=== PATIENT | female | born 1950 | race Hispanic/Latino ===

== ENCOUNTER → 2020-12-08 | Day surgery (SDC) | payer OTHER, BC ==
[~2020-12-08] MED LIST: LIDOCAINE 1% MPF 5 ML VIAL ONE; Ringers Lactate 1,000 ML IV ONE; propofoL 200 MG/20 ML VIAL IV ONE
--- NOTE | 2020-12-08 08:53 | ENDO RPT ---
[address], [address] COLONOSCOPY PROCEDURE REPORT EXAM DATE: 12/08/2020 PATIENT NAME: Linda Gleason MR #: [id number] BIRTHDATE: 1950 ATTENDING: Mason Almeida MD STATUS: outpatient DIGITAL DIRECTOR: Demetria Mauricio RN and Diana BAUTISTA INDICATIONS: The patient is a 70 yr old Female here for a colonoscopy due to colon cancer screening PROCEDURE PERFORMED: Colonoscopy with hot biopsy polypectomy MEDICATIONS: Per Anesthesia. ESTIMATED BLOOD LOSS: None CONSENT: The patient understands the risks and benefits of the procedure and understands that these risks include, but are not limited to: sedation, allergic reaction, infection, perforation and/or bleeding. Alternative means of evaluation and treatment include, among others: physical exam, x-rays, and/or surgical intervention. The patient elects to proceed with this endoscopic procedure. DESCRIPTION OF PROCEDURE: During intra-op preparation period all mechanical medical equipment was checked for proper function. Hand hygiene and appropriate measures for infection prevention was taken. Procedure, possible complications, alternatives including, but not limited to possibility of bleeding, perforation, tear, infection, sepsis, need for surgery, need for blood transfusion, were explained to the patient. After the risks, benefits and alternatives of the procedure were thoroughly explained, Informed consent was verified, confirmed and timeout was successfully executed by the treatment team. The patient was placed in the left lateral position. A digital rectal exam was performed and revealed external hemorrhoids. After appropriate level of anesthesia, the scope was passed. The [id number] ([id number]) endoscope was introduced through the anus and advanced to the cecum, which was identified by transillumination from the light source, the appendix, and the ileocecal valve. The quality of the prep was fair. The instrument was then slowly withdrawn as the colon was fully examined. Scope withdrawal time was . COLON FINDINGS: Diverticula was found throughout the entire examined colon. The opening was medium sized. A sessile polyp was found in the ascending colon approximately 90-95 cm from anal verge < 0.3cm . Retroflexed views revealed no abnormalities. The scope was then completely withdrawn from the patient and the procedure terminated. ADVERSE EVENTS: There were no complications. IMPRESSIONS: 1. Diverticula throughout the entire examined colon 2. Sessile polyp was found in the ascending colon; polypectomy was performed in a piecemeal fashion using hot forceps 3. External hemorrhoids 4. Internal hemorrhoids RECOMMENDATIONS: 1. await biopsy results 2. follow-up: office 1 week(s) 3. hemorrhoidal hygiene 4. no seeds in diet RECALL: for Colonoscopy, pending biopsy results. Mason Almeida MD eSigned: Mason Almeida MD 12/08/2020 8:53 AM cc: Mason Almeida M.D. CPT CODES: ICD9 CODES: PATIENT NAME: Linda Gleason MR#: [id number]
[2020-12-08 09:03] VITALS: BP 98/60; TEMP 97.5; O2SAT 100
== END ==
LOC: OR 07:38
PROVIDERS: ATTEND Surgery
PROC: 0DBK8ZX Excision of Ascending Colon, Via Natural or Artificial Opening Endoscopic, Diagnostic (ICD-10-PCS; principal; 2020-12-08 08:30)
DX: Z12.11 Encounter for screening for malignant neoplasm of colon (principal); I10 Essential (primary) hypertension; I48.91 Unspecified atrial fibrillation; I51.9 Heart disease, unspecified; F32.9 Major depressive disorder, single episode, unspecified; E78.00 Pure hypercholesterolemia, unspecified; D12.2 Benign neoplasm of ascending colon; K64.4 Residual hemorrhoidal skin tags; K64.8 Other hemorrhoids
CPT/HCPCS: 88305; 45384; J2704; J7120

== ENCOUNTER 2022-01-06 00:45 | Emergency (ER) | payer OTHER, BC ==
--- OUTSIDE RECORDS SUMMARY | 2022-01-06 00:51 | XMS REPORT | Continuity of Care Document ---
:1950 Author Organization [facility] t Address [address] [place] [address] Care Team Providers Name Role Phone GOMEZ LAURA Primary Care Physician Unavailable Rupali Nolan Attending Clinician Unavailable Wandy Kemp MD, Guilherme Attending Clinician POLO SABA Attending Clinician Unavailable WIN COLBERT Attending Clinician Unavailable IFEANYI BUTLER Attending Clinician Unavailable AMARILIS CASTLE Attending Clinician Unavailable NICOLE GALLEGOS Attending Clinician Unavailable LA NENA BRANCH Attending Clinician Unavailable ELENA COBURN Admitting Clinician Unavailable POLO SABA Admitting Clinician Unavailable LA NENA BRANCH Admitting Clinician Unavailable Payers Payer Name Policy Type Policy Number Effective Date Expiration Date [facility] MEDICARE A B [id number] 2013 00:00:00 [place] [id number] 2015 OS 00:00:00 Problems Condition Condition Condition Status Onset Resolution Last Treating Co mments Source Name Details Category Date Date Treatment Clinician Date Deep vein 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 [facility] thrombosis thrombosis 1-20 Co llege (DVT) of (DVT) of 00:00: of non-extrem non-extrem 00 Me dicin ity vein ity vein e PFO PFO Disease Active 2017-05 [facility] (patent (patent 06-04 [place] foramen foramen 00:00: of ovale) ovale) 00 Medicin e Allergies, Adverse Reactions, Alerts Allergy Allergy Status Severity Reaction(s) Onset Inactive Treating Comm ents Source Name Type Date Date Clinician SHELLFIS Allergy [facility] PRODUCTS Shellfis Propensi Active Swelling [facility] or h-Derive ty to 08-24 [place] d adverse 00:00: of Products reaction 00 Medici n s to e drug PENICILL Allergy Active High Swelling [facility] Penicill Propensi Active Rash [facility] ins ty to 10-15 [place] adverse 00:00: of reaction 00 Medicin s to e drug PCN Adverse Active Info Not Common Reaction [facility] Social History Social Habit Start Date Stop Date Quantity Comments Source History [facility] ge Alcohol Frequency of Medi cine History [facility] ge Alcohol Std Drinks of Med icine History [facility] ge Alcohol Binge of Medicine Cigarette 2021-10-20 2021-10-20 [facility] pack-years 00:00:00 00:00:00 of Medicine Tobacco use and 2021-10-20 2021-10-20 Smokeless tobacco [facility] exposure 00:00:00 00:00:00 non-user of Medicine Alcohol intake 2021-10-20 2021-10-20 .14 /d [facility] Col michelle 00:00:00 00:00:00 of Medicine Alcohol Comment 2017-08-12 2017-08-12 wine on occas [facility] 00:00:00 00:00:00 of Medicine [birth year] [facility] Co llege 00:00:00 00:00:00 of Medicine Smoking Status Start Date Stop Date Source Never smoked tobacco [facility] ege of Medicine Medications Ordered Filled Start Stop Current Ordering Indication Dosage Frequency Signature Comments Components Source Medication Medication Date Date Medication? Clinician (SIG) Name Name hydrALAZINE Yes [id number] TAKE ONE [facility] (APRESOLINE 4-25 TABLET BY Col michelle ) 25 MG 00:00: MOUTH of tablet 00 THREE Medicin TIMES A e DAY rosuvastati 0 Yes [id number] TAKE ONE [facility] n (CRESTOR) 3-03 TABLET BY Col lege 10 MG 00:00: MOUTH of tablet 00 DAILY Medicin e Rivaroxaban 0 Yes [id number] 20mg Take 20 mg [facility] 20 MG TABS 1-26 by mouth Colle ge 00:00: daily. of Medicin e alendronate 2020- No 70mg Take 70 mg [facility] (FOSAMAX) 8-01-13 by mouth Colle ge 70 MG 11:11: 00:00 every 7 of tablet 53 :00 days. Medicin e famotidine Yes 20mg Take 20 mg [facility] (PEPCID) 20 8-26 by mouth Darya ege MG tablet 00:00: daily. of Medicin e omeprazole 0 Yes 20mg Take 20 mg [facility] (PRILOSEC) 8-26 by mouth Colle ge 20 MG 00:00: daily. of capsule 00 Medicin e famotidine 0 Yes 20mg Take 20 mg [facility] (PEPCID) 20 8-26 by mouth Darya ege MG tablet 00:00: daily. of Medicin e omeprazole 0 Yes 20mg Take 20 mg [facility] (PRILOSEC) 8-26 by mouth Colle ge 20 MG 00:00: daily. of capsule 00 Medicin e metoprolol 0 Yes 25mg Take 1 [facility] (LOPRESSOR) 6-18 Tablet by Col lege 25 MG 00:00: mouth two of tablet 00 times Medicin daily. e metoprolol 0 Yes 25mg Take 1 [facility] (LOPRESSOR) 6-18 Tablet by Col lege 25 MG 00:00: mouth two of tablet 00 times Medicin daily. e amiodarone 2020-0 Yes [id number] 100mg Take 1 [facility] (PACERONE) 6-16 Tablet by Darya ege 100 MG 00:00: mouth of tablet 00 daily. Medicin e amiodarone 2020-0 Yes [id number] 100mg Take 1 [facility] (PACERONE) 6-16 Tablet by Darya ege 100 MG 00:00: mouth of tablet 00 daily. Medicin e alendronate Yes 70mg Take 70 mg [facility] (FOSAMAX) 5-14 by mouth Colleg e 70 MG 08:17: every 7 of tablet 09 days. Medicin e hydrALAZINE Yes [id number] TAKE ONE [facility] (APRESOLINE 4-30 TABLET BY Col lege ) 25 MG 00:00: MOUTH of tablet 00 THREE Medicin TIMES A e DAY hydrALAZINE 2020-0 Yes [id number] TAKE ONE [facility] (APRESOLINE 4-30 TABLET BY Col lege ) 25 MG 00:00: MOUTH of tablet 00 THREE Medicin TIMES A e DAY ELIQUIS 5 0 Yes [id number] TAKE ONE [facility] MG TABS 4-12 TABLET BY [place] 00:00: MOUTH of 00 TWICE A Medicin DAY e ELIQUIS 5 0 Yes [id number] TAKE ONE [facility] MG TABS 4-12 TABLET BY [place] 00:00: MOUTH of 00 TWICE A Medicin DAY e chlorthalid 0 Yes [id number] TAKE ONE [facility] one 4-08 TABLET BY [place] (HYGROTEN) 00:00: MOUTH of 25 MG 00 DAILY Medicin tablet e chlorthalid 2020-0 2020- No [id number] TAKE ONE [facility] one 4-08 08-31 TABLET BY [place] (HYGROTEN) 00:00: 00:00 MOUTH of 25 MG 00 :00 DAILY Medicin tablet e metoprolol 2019-05 Yes TAKE ONE [facility] (LOPRESSOR) 2-01 TABLET BY Col lege 25 MG 00:00: MOUTH of tablet 00 TWICE A Medicin DAY e rosuvastati 2019-05 Yes [id number] TAKE ONE [facility] n (CRESTOR) 1-23 TABLET BY Col lege 10 MG 00:00: MOUTH of tablet 00 DAILY Medicin e rosuvastati 2019- Yes [id number] TAKE ONE [facility] n (CRESTOR) 1-23 TABLET BY Col lege 10 MG 00:00: MOUTH of tablet 00 DAILY Medicin e alendronate 0 Yes 70mg Take 70 mg [facility] (FOSAMAX) 9-18 by mouth Colleg e 70 MG 14:01: every 7 of tablet 10 days. Medicin e hydrALAZINE 2019- Yes [id number] TAKE ONE [facility] (APRESOLINE 4-28 TABLET BY Col lege ) 25 MG 00:00: MOUTH of tablet 00 THREE Medicin TIMES A e DAY chlorthalid 2019- Yes [id number] TAKE ONE [facility] one 4-16 TABLET BY [place] (HYGROTEN) 00:00: MOUTH of 25 MG 00 DAILY Medicin tablet e ELIQUIS 5 Yes [id number] TAKE ONE [facility] MG TABS 4-06 TABLET BY College 00:00: MOUTH of 00 TWICE A Medicin DAY e Alendronate Alendronate 2020- No Rupali 1 tablet Common Sodium Sodium 3-16 07-14 [place] 30 minutes Spi rit 00:00: 00:00 before the - [facility] 00 :00 [facility] medicine of the day with plain water metoprolol 2018-05 Yes 25mg Take 1 Tab [facility] (LOPRESSOR) 2-11 by mouth Darya ege 25 MG 00:00: two times of tablet 00 daily. Medicin e rosuvastati 2018-05 Yes [id number] 10mg Take 1 Tab [facility] n (CRESTOR) 2-03 by mouth Darya ege 10 MG 00:00: daily. of tablet 00 Medicin e hydrALAZINE Yes [id number] TAKE ONE [facility] (APRESOLINE 6-03 TABLET BY Col lege ) 25 MG 00:00: MOUTH of tablet 00 THREE Medicin TIMES A e DAY chlorthalid 2018- Yes [id number] TAKE ONE [facility] one 4-22 TABLET BY [place] [facility] 00:00: MOUTH of 25 MG 00 DAILY Medicin tablet e ELIQUIS 5 2017-05 Yes TAKE ONE [facility] MG TABS 2-10 TABLET BY [place] 00:00: MOUTH of 00 TWICE A Medicin DAY e metoprolol Yes 25mg Take 1 Tab [facility] (LOPRESSOR) 8-13 by mouth Darya ege 25 MG 00:00: two times of tablet 00 daily. Medicin e enoxaparin Yes Inject 70 [facility] 100 MG/ML 7-31 mg twice a [facility]arya ege SOLN 00:00: day, last of 00 dose Medicin Morning of e Procedure. Metoprolol Metoprolol Yes Rupali 1 tablet Common Tartrate Tartrate [place] with food S pirit - [facility] Eliquis Eliquis Yes Rupali 1 tablet Comm on [place] [facility] Rosuvastati Rosuvastati Yes Rupali 1 tablet Common n Calcium n Calcium [place] [facility] HydrALAZINE HydrALAZINE Yes Rupali 1 tablet Common HCl HCl [place] with food [facility] Chlorthalid Chlorthalid Yes Rupali 1 tablet Common one one [place] in the [facility] - [facility] with food [facility] Immunizations Ordered Immunization Filled Immunization Date Status Commen ts Source Name Name Prevnar 13 Prevnar 13 2019-07-30 Completed Common [facility] -Pneumonia Vaccine -Pneumonia Vaccine 00:00:00 - [facility] FLUZONE HIGH DOSE FLUZONE HIGH DOSE 2019-04-30 Completed Common [facility] OVER 65 OVER 65 00:00:00 [facility] Vital Signs Vital Name Observation Time Observation Value Comments Source Systolic blood 2021-10-20 19:44:00 152 mm[Hg] [facility] pressure Medicine Diastolic blood 2021-10-20 19:44:00 82 mm[Hg] [facility] Medicine Heart rate 2021-10-20 19:44:00 61 /min [facility] Respiratory rate 2021-10-20 19:44:00 15 /min [facility] Body height 2021-10-20 19:44:00 157.5 cm [facility] Body weight 2021-10-20 19:44:00 72.576 kg [facility] BMI 2021-10-20 19:44:00 29.26 kg/m2 [facility] Oxygen saturation in 2021-10-20 19:44:00 96 /min [facility] Arterial blood by Medicine Pulse oximetry Systolic blood 2021-01-13 16:15:00 132 mm[Hg] [facility] pressure Medicine Diastolic blood 2021-01-13 16:15:00 73 mm[Hg] [facility] Medicine Heart rate 2021-01-13 16:15:00 58 /min [facility] Oxygen saturation in 2021-01-13 16:15:00 99 /min [facility] Arterial blood by Medicine Pulse oximetry Respiratory rate 2021-01-13 16:09:00 15 /min [facility] Body height 2021-01-13 16:09:00 157.5 cm [facility] Body weight 2021-01-13 16:09:00 [facility]487 [facility] BMI 2021-01-13 16:09:00 28.83 kg/m2 [facility] HEIGHT 2020-10-24 10:47:00 157.5 cm WEIGHT 2020-10-24 10:47:00 72.122 kg HEIGHT 2020-10-24 10:47:00 157.5 cm WEIGHT 2020-10-24 10:47:00 72.122 kg HEIGHT 2020-09-26 10:51:00 165.1 cm WEIGHT 2020-09-26 10:51:00 70.761 kg HEIGHT 2020-09-26 10:51:00 165.1 cm WEIGHT 2020-09-26 10:51:00 70.761 kg Oxygen saturation in 2020-09-26 13:17:00 98 /min [facility] blood by Medicine Pulse oximetry Systolic blood 2020-09-26 13:17:00 117 mm[Hg] [facility] pressure Medicine Diastolic blood 2020-09-26 13:17:00 80 mm[Hg] [facility] pressure Medicine Heart rate 2020-09-26 13:17:00 76 /min [facility] Res[facility] rate 2020-09-26 13:17:00 15 /min [facility] Body height 2020-09-26 13:17:00 157.5 cm [facility] Body weight 2020-09-26 13:17:00 71.668 kg [facility] BMI 2020-09-26 13:17:00 28.90 kg/m2 [facility] Systolic blood 2020-02-01 14:01:00 139 mm[Hg] [facility] pressure Medicine Diastolic blood 2020-02-01 14:01:00 77 mm[Hg] [facility] pressure Medicine Heart rate 2020-02-01 14:01:00 62 /min [facility] Respiratory rate 2020-02-01 14:01:00 15 /min [facility] Body height 2020-02-01 14:01:00 157.5 cm [facility] Body weight 2020-02-01 14:01:00 70.308 kg [facility] ol[facility] of Medicine BMI 2020-02-01 14:01:00 28.35 kg/m2 [facility] ol[facility] of Medicine Oxygen saturation in 2020-02-01 14:01:00 99 /min [facility] of Arterial blood by Medicine Pulse oximetry Systolic blood 2020-02-01 14:01:00 139 mm[Hg] [facility] of pressure Medicine Diastolic blood 2020-02-01 14:01:00 77 mm[Hg] [facility] Medicine Heart rate 2020-02-01 14:01:00 62 /min [facility] of Medicine Respiratory rate 2020-02-01 14:01:00 15 /min [facility] Body height 2020-02-01 14:01:00 157.5 cm [facility] Body weight 2020-02-01 14:01:00 70.308 kg [facility] ol[facility] of Medicine BMI 2020-02-01 14:01:00 28.35 kg/m2 [facility] Oxygen saturation in 2020-02-01 14:01:00 99 /min [facility] of Arterial blood by Medicine Pulse oximetry Systolic blood 2019-01-16 18:47:00 145 mm[Hg] [facility] pressure Medicine Diastolic blood 2019-01-16 18:47:00 70 mm[Hg] [facility] Medicine Heart rate 2019-01-16 18:47:00 60 /min [facility] of Medicine Respiratory rate 2019-01-16 18:47:00 15 /min [facility] Body height 2019-01-16 18:47:00 157.5 cm [facility] of Medicine Body weight 2019-01-16 18:47:00 70.761 kg [facility] of Medicine BMI 2019-01-16 18:47:00 28.53 kg/m2 [facility] ol[facility] of Medicine Oxygen saturation in 2019-01-16 18:47:00 98 /min [facility] of Arterial blood by Medicine Pulse oximetry Systolic blood 2019-01-16 18:47:00 145 mm[Hg] [facility] pressure Medicine Diastolic blood 2019-01-16 18:47:00 70 mm[Hg] [facility] pressure Medicine Heart rate 2019-01-16 18:47:00 60 /min [facility] Respiratory rate 2019-01-16 18:47:00 15 /min [facility] Body height 2019-01-16 18:47:00 157.5 cm [facility] Body weight 2019-01-16 18:47:00 70.761 kg [facility] BMI 2019-01-16 18:47:00 28.53 kg/m2 [facility] Oxygen saturation in 2019-01-16 18:47:00 98 /min [facility] Arterial blood by [facility] Pulse oximetry Procedures Procedure Date / Time Performing Clinician Source Performed ELECTROCARDIOGRAM COMPLETE 2021-10-20 19:49:00 Wandy [facility] ELECTROCARDIOGRAM COMPLETE 2020-09-26 13:21:00 Saba [facility] ELECTROCARDIOGRAM COMPLETE 2020-02-01 14:03:00 Bally [facility] ELECTROCARDIOGRAM COMPLETE 2019-01-16 19:21:00 Saba [facility] Plan of Care Planned Activity Planned Date Details Comments Source Future Scheduled 2021-10-20 ELECTROCARDIOGRAM [facility] Test 14:49:38 COMPLETE [code = 88168] of M edicine Future Scheduled 2021-10-20 Screening for malignant [facility] Test 14:46:09 neoplasm of colon of Medicin e (procedure) [code = 566758684] Future Scheduled 2021-10-20 Screening for malignant [facility] Test 14:46:09 neoplasm of breast of Medici ne (procedure) [code = 875429305] Future Scheduled 2021-10-20 COVID-19 Vaccine (#1) [facility] Test 14:46:09 [code = COVID-19 of Medicine Vaccine (#1)] Future Scheduled 2021-10-20 TETANUS SHOT (ADULT) [facility] Test 14:46:09 [code = TETANUS SHOT of Medi cine (ADULT)] Future Scheduled 2021-10-20 BMI FOLLOW UP PLAN [facility] Test 14:46:09 [code = BMI FOLLOW UP of Med icine PLAN] Future Scheduled 2021-10-20 Hepatitis C screening [employer] Test 14:46:09 (procedure) [code = of Medic ine 595465973] Future Scheduled 2021-10-20 ZOSTER VACCINE (1 of 2) [facility] Test 14:46:09 [code = ZOSTER VACCINE of Me dicine (1 of 2)] Future Scheduled 2021-10-20 FALL SCREEN [code = [facility] [employer] Test 14:46:09 FALL SCREEN] of Medicine Future Scheduled 2021-10-20 Screening for [facility] Col lege Test 14:46:09 osteoporosis of Medicine (procedure) [code = 835485252] Future Scheduled 2021-10-20 Pneumococcal 65+ (1 - [employer] Test 14:46:09 PCV) [code = of Medicine Pneumococcal 65+ (1 - PCV)] Future Scheduled 2021-10-20 MEDICARE AWV (Initial) [facility] [employer] Test 14:46:09 [code = MEDICARE AWV of Medi cine (Initial)] Future Scheduled 2021-10-20 FLU VACCINE > 6 MONTHS [facility] [employer] Test 14:46:09 [code = FLU VACCINE > 6 of M edicine MONTHS] Future Scheduled 2021-01-13 Screening for malignant [facility] Test 11:09:51 neoplasm of colon of Medicin e (procedure) [code = 387719060] Future Scheduled 2021-01-13 Screening for malignant [facility] Test 11:09:51 neoplasm of breast of Medici ne (procedure) [code = 867559638] Future Scheduled 2021-01-13 COVID-19 Vaccine (1) [facility] Test 11:09:51 [code = COVID-19 of Medicine Vaccine (1)] Future Scheduled 2021-01-13 TETANUS SHOT (ADULT) [facility] [employer] Test 11:09:51 [code = TETANUS SHOT of Medi cine (ADULT)] Future Scheduled 2021-01-13 BMI FOLLOW UP PLAN [facility] [employer] Test 11:09:51 [code = BMI FOLLOW UP of Med icine PLAN] Future Scheduled 2021-01-13 Hepatitis C screening [employer] Test 11:09:51 (procedure) [code = of Medic ine 853352992] Future Scheduled 2021-01-13 ZOSTER VACCINE (1 of 2) [facility] Test 11:09:51 [code = ZOSTER VACCINE of Me dicine (1 of 2)] Future Scheduled 2021-01-13 MEDICARE AWV (Initial) [facility] [employer] Test 11:09:51 [code = MEDICARE AWV of Medi cine (Initial)] Future Scheduled 2021-01-13 FALL SCREEN [code = [facility] [employer] Test 11:09:51 FALL SCREEN] of Medicine Future Scheduled 2021-01-13 Screening for [facility] Col lege Test 11:09:51 osteoporosis of Medicine (procedure) [code = 577004439] Future Scheduled 2021-01-13 PNEUMOVAX >=65 (PPSV23) [facility] Test 11:09:51 [code = PNEUMOVAX >=65 of Me dicine (PPSV23)] Future Scheduled 2021-01-13 FLU VACCINE > 6 MONTHS [facility] [employer] Test 11:09:51 [code = FLU VACCINE > 6 of M edicine MONTHS] Future Scheduled 2020-09-26 Screening for malignant [facility] Test 08:51:16 neoplasm of colon of Medicin e (procedure) [code = 285080904] Future Scheduled 2020-09-26 Screening for malignant [facility] Test 08:51:16 neoplasm of breast of Medici ne (procedure) [code = 582532640] Future Scheduled 2020-09-26 COVID-19 Vaccine (1) [facility] [employer] Test 08:51:16 [code = COVID-19 of Medicine Vaccine (1)] Future Scheduled 2020-09-26 TETANUS SHOT (ADULT) [facility] [employer] Test 08:51:16 [code = TETANUS SHOT of Medi cine (ADULT)] Future Scheduled 2020-09-26 BMI FOLLOW UP PLAN [facility] [employer] Test 08:51:16 [code = BMI FOLLOW UP of Med icine PLAN] Future Scheduled 2020-09-26 Hepatitis C screening [facility] Test 08:51:16 (procedure) [code = of Medic ine 015134200] Future Scheduled 2020-09-26 ZOSTER VACCINE (1 of 2) [facility] Test 08:51:16 [code = ZOSTER VACCINE of Me dicine (1 of 2)] Future Scheduled 2020-09-26 MEDICARE AWV (Initial) [facility] [employer] Test 08:51:16 [code = MEDICARE AWV of Medi cine (Initial)] Future Scheduled 2020-09-26 FALL SCREEN [code = [facility] [facility] [employer] Test 08:51:16 FALL SCREEN] of Medicine Future Scheduled 2020-09-26 Screening for [facility] Test 08:51:16 osteoporosis of Medicine (procedure) [code = 773655461] Future Scheduled 2020-09-26 PNEUMOVAX >=65 (PPSV23) [facility] Test 08:51:16 [code = PNEUMOVAX >=65 of Me dicine (PPSV23)] Future Scheduled 2020-09-26 FLU VACCINE > 6 MONTHS [facility] [employer] Test 08:51:16 [code = FLU VACCINE > 6 of M edicine MONTHS] Future Scheduled 2020-09-26 ELECTROCARDIOGRAM [facility] Test 08:21:07 COMPLETE [code = 59698] of M edicine Diagnostic Test 2019-01-16 MYOCARD PERFUSION - Expected: [employer] Pending 00:00:00 EXERCISE [code = 32486] 01/16/2019, of M edicine Expires: 07/16/2020 Diagnostic Test 2019-01-16 ECHO, COMPLETE [code = Expected: [employer] Pending 00:00:00 95386] 01/16/2019, of Medicine Expires: 07/17/2019 Future Scheduled CBC W/AUTO DIFF WITH Ordered: [facility] [employer] Test PLATELETS [code = 01/16/2019 of Medicin e 51624-7] Future Scheduled BASIC METABOLIC PANEL Ordered: [employer] Test [code = 85560-3] 01/16/2019 of Medicine Future Scheduled LIPID PANEL [code = Ordered: [facility] [facility] [employer] Test 21205-1] 01/16/2019 of Medicine Future Scheduled LIVER CANCER MONITOR Ordered: [facility] [employer] Test PROFILE [code = NOCPT] 01/16/2019 of Me dicine Future Scheduled ELECTROCARDIOGRAM [facility] Test COMPLETE [code = 08537] of M edicine Future Scheduled COLON CANCER SCREENING: [facility] Test COLONOSCOPY [code = of Medic ine COLON CANCER SCREENING: COLONOSCOPY] Future Scheduled MAMMOGRAM ANNUAL [code [facility] [employer] Test = MAMMOGRAM ANNUAL] of Medic ine Future Scheduled MEDICARE AWV [code = [facility] [employer] Test MEDICARE AWV] of Medicine Future Scheduled TETANUS SHOT (ADULT) [facility] [employer] Test [code = TETANUS SHOT of Medi cine (ADULT)] Future Scheduled BMI FOLLOW UP PLAN [employer] Test [code = BMI FOLLOW UP of Med icine PLAN] Future Scheduled HEPATITIS C SCREENING [employer] Test [code = HEPATITIS C of Medic ine SCREENING] Future Scheduled FALL SCREEN [code = [facility] [facility] [employer] [facility] FALL SCREEN] of Medicine Future Scheduled OSTEOPOROSIS SCREENING [facility] [employer] Test [code = OSTEOPOROSIS of Medi cine SCREENING] Future Scheduled PNEUMOVAX >=65 (PPSV23) [facility] Test [code = PNEUMOVAX >=65 of Me dicine (PPSV23)] Future Scheduled PREVNAR >= 65 (PCV13) [employer] Test [code = PREVNAR >= 65 of Med icine (PCV13)] Future Scheduled FLU VACCINE > 6 MONTHS [facility] [code = FLU VACCINE > 6 of M edicine MONTHS] Future Scheduled ELECTROCARDIOGRAM [facility] Test COMPLETE [code = 21507] of M edicine Future Scheduled COLON CANCER SCREENING: [facility] Test COLONOSCOPY [code = of Medic ine COLON CANCER SCREENING: COLONOSCOPY] Future Scheduled MAMMOGRAM ANNUAL [facility] AN[facility]] of Medic ine Future Scheduled TETANUS SHOT (ADULT) [facility] [employer] Test [code = TETANUS SHOT of Medi cine (ADULT)] Future Scheduled BMI FOLLOW UP PLAN [facility] [employer] Test [code = BMI FOLLOW UP of Med icine PLAN] Future Scheduled HEPATITIS C SCREENING [employer] [facility] [employer] Test [code = HEPATITIS C of Medic ine SCREENING] Future Scheduled ZOSTER VACCINE (1 of 2) [facility] Test [code = ZOSTER VACCINE of Me dicine (1 of 2)] Future Scheduled MEDICARE AWV (Initial) [facility] [employer] Test [code = MEDICARE AWV of Medi cine (Initial)] Future Scheduled FALL SCREEN [code = [facility] [facility] [employer] [facility] FALL SCREEN] of Medicine Future Scheduled OSTEOPOROSIS SCREENING [facility] [employer] [employer] Test [code = OSTEOPOROSIS of Medi cine SCREENING] Future Scheduled PNEUMOVAX >=65 (PPSV23) [facility] Test [code = PNEUMOVAX >=65 of Me dicine (PPSV23)] Future Scheduled FLU VACCINE > 6 MONTHS [facility] [code = FLU VACCINE > 6 of M edicine MONTHS] Future Scheduled US VENOUS LEG BILATERAL 1 Occurrences [facility] Test [code = 56665] starting of Medicine 02/01/2020 until 01/31/2021 Future Scheduled US CAROTID [code = 1 Occurrences [facility] [facility] [employer] [facility] 58537] starting of Medicine 02/01/2020 until 01/31/2021 Encounters Start End Encounter Admission Attending Care Care Encounter Source Date/Time Date/Time Type Type Clinicians Facility Department ID 2021-11-18 Outpatient An, STLMLC STLMLC [id number] Common 08:07:00 Rupali [id number] [facility] 2021-06-10 Outpatient An, [facility]LMLC [facility] [id number] Common 13:45:27 Rupali [id number] [facility] 2021-06-10 Outpatient An, STLMLC STLMLC [id number] Common 13:12:22 Rupali 72977 [facility] 2021-06-10 Outpatient An, STLMLC STLMLC [id number] Common 12:57:14 Rupali [id number] [facility] 2021-11-20 2021-11-20 ambulatory STLMLC STLMLC [id number] Common 00:00:00 00:00:00 [facility] 2021-11-20 2021-11-20 ambulatory STLMLC STLMLC [id number] Common 00:00:00 00:00:00 [facility] 2021-11-18 2021-11-18 ambulatory STLMLC STLMLC [id number] Common 00:00:00 00:00:00 [facility] 2021-11-12 2021-11-12 ambulatory STLMLC STLMLC [id number] Common 00:00:00 00:00:00 [facility] 2021-10-20 2021-10-20 Office MIKAEL Saba [id number] [id number] [facility] 15:00:00 15:20:00 [facility] AMBULATOR 350.1.13.21 College Y 0.2.7.2.686 of [id number] Medi debbie 370 e 2021-08-20 2021-08-20 ambulatory STLMLC STLMLC [id number] Common 00:00:00 00:00:00 [facility] 2021-02-24 2021-02-24 Outpatient STLMLC STLMLC [id number] Common 00:00:00 00:00:00 [facility] 2021-01-13 2021-01-13 Outpatient [facility] [id number] [facility] 09:59:26 14:49:36 [facility] 2021-01-13 2021-01-13 Office MIKAEL Saba [id number] [id number] [facility] 09:59:52 10:19:52 Visit [place] AMBULATOR 350.1.13.21 College Y 0.2.7.2.686 of [id number] Medi debbie 370 e 2020-12-30 2020-12-30 Outpatient [facility] [id number] Common 00:00:00 00:00:00 [facility] 2020-12-26 2020-12-26 Outpatient [facility] [id number] [facility] 00:00:00 00:00:00 2020-12-26 2020-12-26 Outpatient GRANT SABA [facility] SLE [id number] [facility] 00:00:00 00:00:00 [facility] 2020-12-11 2020-12-11 Outpatient [facility] [id number] Common 00:00:00 00:00:00 [facility] 2020-10-24 2020-10-24 Outpatient GRANT COLBERT [facility] SLE [id number] [facility] 00:00:00 00:00:00 WIN 2020-09-30 2020-09-30 Outpatient STLC STLC [id number] Common 00:00:00 00:00:00 [facility] 2020-09-26 2020-09-26 Emergency ER [facility] Emergency [id number] SLE 10:38:00 10:38:00 2020-09-26 2020-09-26 Office MIKAEL Saba 1.2.840.114 [id number] [facility] 08:06:00 08:26:00 Visit [place] AMBULATOR 350.1.13.21 College Y 0.2.7.2.686 of [id number] [facility] debbie 370 e 2020-09-25 2020-09-25 Outpatient STLMLC STLC [id number] Common 00:00:00 00:00:00 [facility] 2020-09-10 2020-09-10 Outpatient STLMLC STLMLC [id number] Common 00:00:00 00:00:00 [facility] 2020-07-16 2020-07-16 Outpatient STLMLC STLMLC [id number] Common 00:00:00 00:00:00 [facility] 2020-05-13 2020-05-13 Outpatient STLMLC STLMLC [id number] Common 00:00:00 00:00:00 [facility] 2020-04-28 2020-04-28 Outpatient STLMLC STLMLC [id number] Common 00:00:00 00:00:00 [facility] 2020-02-01 2020-02-01 Office MIKAEL Saba 1.2.840.114 [id number] 08:44:29 09:04:29 Visit [place] AMBULATOR 350.1.13.21 Y 0.2.7.2.686 [id number] [facility] 2020-02-01 2020-02-01 Office MIKAEL Saba 1.2.840.[id number] [place] [address] 08:44:29 09:04:29 Visit [place] AMBULATOR 350.1.13.21 College Y 0.2.7.2.686 of [id number] [facility] 370 e 2019-10-19 2019-10-19 Outpatient CORRINE, [facility] [id number] [place] 00:00:00 00:00:00 [place] [address] 2019-10-19 2019-10-19 Outpatient CORRINE, [facility] [id number] [place] 00:00:00 00:00:00 [place] [address] 2019-07-30 2019-07-30 [facility] [id number] Common 15:00:00 15:00:00 [facility] it [facility] 2019-04-30 2019-04-30 [facility] [id number] Common 11:00:00 11:00:00 [facility] it Road [facility] 2019-01-16 2019-01-16 Office MIKAEL Saba 1.2.840.114 [id number] 13:40:59 14:00:59 Visit [place] AMBULATOR 350.1.13.21 Y 0.2.7.2.686 [id number] 2019-01-16 2019-01-16 Office MIKAEL Saba 1.2.840.114 [id number] [facility] 13:40:59 14:00:59 Visit [place] AMBULATOR 350.1.13.21 College Y 0.2.7.2.686 of [id number] [facility] 315 e Results Test Description Test Time Test Comments Results Result Comments Source BASIC METABOLIC PANEL 2020-10-24 11:36:00 Test Item Value Reference Range Interpretation Comme nts SODIUM (BEAKER) (test code 140 meq/L 136-145 = 381) POTASSIUM (BEAKER) (test 3.8 meq/L 3.5-5.1 code = 379) CHLORIDE (BEAKER) (test 102 meq/L 98-107 code = 382) CO2 (BEAKER) (test code = 31 meq/L 22-29 H 355) BLOOD UREA NITROGEN 19 mg/dL 7-21 (BEAKER) (test code = 354) CREATININE (BEAKER) (test 0.82 mg/dL 0.57-1.25 code = 358) GLUCOSE RANDOM (BEAKER) 69 mg/dL 70-105 L (test code = 652) CALCIUM (BEAKER) (test code 9.9 mg/dL 8.4-10.2 = 697) EGFR (BEAKER) (test code = 69 mL/min/1.73 sq m ESTIMATED GFR IS NOT 1092) ACCURATE CRE ATININE CLEARANCE IN [place] EDICTING GLOMERULAR FILT RATION RATE. ESTIMATED GFR IS NOT APPLICABLE FOR DIALYSIS PATIENTS. Automotive Starter Repairer ID - MAGO CCBC W/PLT COUNT & AUTO [id number] 11:21:00 Test Item Value Reference Range Interpretation Comments WHITE BLOOD CELL COUNT (BEAKER) 4.4 K/ L 3.5-10.5 (test code = 775) RED BLOOD CELL COUNT (BEAKER) 4.23 M/ L 3.93-5.22 (test code = 761) HEMOGLOBIN (BEAKER) (test code = 12.5 GM/DL 11.2-15.7 410) HEMATOCRIT (BEAKER) (test code = 39.4 % 34.1-44.9 411) MEAN CORPUSCULAR VOLUME (BEAKER) 93.1 fL 79.4-94.8 (test code = 753) MEAN CORPUSCULAR HEMOGLOBIN 29.6 pg 25.6-32.2 (BEAKER) (test code = 751) MEAN CORPUSCULAR HEMOGLOBIN CONC 31.7 GM/DL 32.2-35.5 L (BEAKER) (test code = 752) RED CELL DISTRIBUTION WIDTH 13.4 % 11.7-14.4 (BEAKER) (test code = 412) PLATELET COUNT (BEAKER) (test 210 K/CU MM 150-450 code = 756) MEAN PLATELET VOLUME (BEAKER) 12.1 fL 9.4-12.3 (test code = 754) NUCLEATED RED BLOOD CELLS 0 /100 WBC 0-0 (BEAKER) (test code = 413) NEUTROPHILS RELATIVE PERCENT 58 % (BEAKER) (test code = 429) LYMPHOCYTES RELATIVE PERCENT 29 % (BEAKER) (test code = 430) MONOCYTES RELATIVE PERCENT 10 % (BEAKER) (test code = 431) EOSINOPHILS RELATIVE PERCENT 2 % (BEAKER) (test code = 432) BASOPHILS RELATIVE PERCENT 1 % (BEAKER) (test code = 437) NEUTROPHILS ABSOLUTE COUNT 2.54 K/ L 1.56-6.13 (BEAKER) (test code = 670) LYMPHOCYTES ABSOLUTE COUNT 1.29 K/ L 1.18-3.74 (BEAKER) (test code = 414) MONOCYTES ABSOLUTE COUNT (BEAKER) 0.45 K/ L 0.24-0.36 H (test code = 415) EOSINOPHILS ABSOLUTE COUNT 0.08 K/ L 0.04-0.36 (BEAKER) (test code = 416) BASOPHILS ABSOLUTE COUNT (BEAKER) 0.02 K/ L 0.01-0.08 (test code = 417) IMMATURE GRANULOCYTES-RELATIVE 0 % 0-1 PERCENT (BEAKER) (test code = 2801) BASIC METABOLIC [id number] 06:56:00 Test Item Value Reference Range Interpretation Comments SODIUM (BEAKER) 139 meq/L 136-145 (test code = 381) POTASSIUM (BEAKER) 3.8 meq/L 3.5-5.1 (test code = 379) CHLORIDE (BEAKER) 106 meq/L 98-107 (test code = 382) CO2 (BEAKER) (test 26 meq/L 22-29 code = 355) BLOOD UREA NITROGEN 18 mg/dL 7-21 (BEAKER) (test code = 354) CREATININE (BEAKER) 0.77 mg/dL 0.57-1.25 (test code = 358) GLUCOSE RANDOM 90 mg/dL 70-105 (BEAKER) (test code = 652) CALCIUM (BEAKER) 8.8 mg/dL 8.4-10.2 (test code = 697) EGFR (BEAKER) (test 74 mL/min/1.73 ESTIMA JUAN GFR IS code = 1092) sq m NOT ACCURATE CREATININE CLEARANCE IN PREDICTING GLOMERULAR FILTRATION RATE . ESTIMATED GFR I S NOT APPLICABLE FOR DIALYSIS PATIEN TS. Automotive Starter Repairer ID - ZION [id number] 06:56:00 Test Item Value Reference Range Interpretation Comments MAGNESIUM (BEAKER) (test code = 1.9 mg/dL 1.6-2.6 627) Automotive Starter Repairer ID - ZION FCBC (HEMOGRAM ONLY)2020-09-29 06:44:00 Test Item Value Reference Range Interpretation Comments WHITE BLOOD CELL COUNT (BEAKER) 4.4 K/ L 3.5-10.5 (test code = 775) RED BLOOD CELL COUNT (BEAKER) 3.58 M/ L 3.93-5.22 L (test code = 761) HEMOGLOBIN (BEAKER) (test code = 10.8 GM/DL 11.2-15.7 L 410) HEMATOCRIT (BEAKER) (test code = 34.2 % 34.1-44.9 411) MEAN CORPUSCULAR VOLUME (BEAKER) 95.5 fL 79.4-94.8 H (test code = 753) MEAN CORPUSCULAR HEMOGLOBIN 30.2 pg 25.6-32.2 (BEAKER) (test code = 751) MEAN CORPUSCULAR HEMOGLOBIN CONC 31.6 GM/DL 32.2-35.5 L (BEAKER) (test code = 752) RED CELL DISTRIBUTION WIDTH 13.8 % 11.7-14.4 (BEAKER) (test code = 412) PLATELET COUNT (BEAKER) (test 195 K/CU MM 150-450 code = 756) MEAN PLATELET VOLUME (BEAKER) 11.8 fL 9.4-12.3 (test code = 754) NUCLEATED RED BLOOD CELLS 0 /100 WBC 0-0 (BEAKER) (test code = 413) BASIC METABOLIC [id number] 06:05:00 Test Item Value Reference Range Interpretation Comments SODIUM (BEAKER) 141 meq/L 136-145 (test code = 381) POTASSIUM (BEAKER) 3.9 meq/L 3.5-5.1 (test code = 379) CHLORIDE (BEAKER) 108 meq/L 98-107 H (test code = 382) CO2 (BEAKER) (test 25 meq/L 22-29 code = 355) BLOOD UREA NITROGEN 16 mg/dL 7-21 (BEAKER) (test code = 354) CREATININE (BEAKER) 0.75 mg/dL 0.57-1.25 (test code = 358) GLUCOSE RANDOM 97 mg/dL 70-105 (BEAKER) (test code = 652) CALCIUM (BEAKER) 8.8 mg/dL 8.4-10.2 (test code = 697) EGFR (BEAKER) (test 76 mL/min/1.73 ESTIMA JUAN GFR IS code = 1092) sq m NOT ACCURATE CREATININE CLEARANCE IN PREDICTING GLOMERULAR FILTRATION RATE . ESTIMATED GFR I S NOT APPLICABLE FOR DIALYSIS PATIEN TS. Automotive Starter Repairer ID Uriah NADERSON [id number] 06:05:00 Test Item Value Reference Range Interpretation Comments MAGNESIUM (BEAKER) (test code = 2.0 mg/dL 1.6-2.6 627) Automotive Starter Repairer ID Uriah ANDERSON WCBC (HEMOGRAM ONLY)2020-09-28 05:19:00 Test Item Value Reference Range Interpretation Comments WHITE BLOOD CELL COUNT (BEAKER) 4.7 K/ L 3.5-10.5 (test code = 775) RED BLOOD CELL COUNT (BEAKER) 3.80 M/ L 3.93-5.22 L (test code = 761) HEMOGLOBIN (BEAKER) (test code = 11.4 GM/DL 11.2-15.7 410) HEMATOCRIT (BEAKER) (test code = 36.1 % 34.1-44.9 411) MEAN CORPUSCULAR VOLUME (BEAKER) 95.0 fL 79.4-94.8 H (test code = 753) MEAN CORPUSCULAR HEMOGLOBIN 30.0 pg 25.6-32.2 (BEAKER) (test code = 751) MEAN CORPUSCULAR HEMOGLOBIN CONC 31.6 GM/DL 32.2-35.5 L (BEAKER) (test code = 752) RED CELL DISTRIBUTION WIDTH 13.8 % 11.7-14.4 (BEAKER) (test code = 412) PLATELET COUNT (BEAKER) (test 189 K/CU MM 150-450 code = 756) MEAN PLATELET VOLUME (BEAKER) 12.1 fL 9.4-12.3 (test code = 754) NUCLEATED RED BLOOD CELLS 0 /100 WBC 0-0 (BEAKER) (test code = 413) PET/CT, CARDIAC PERF REST AND [id number] 14:12:00Reason for exam:- >[facility]AL [facility] 1950 Sex: FFINAL REPORT PROCEDURE: MYOCARDIAL PERFUSION PET IMAGING (Rest/Stress)CPT CODE: 96293 INDICATION: Atrial fibrillation CARDIOVASCULAR PROFILE:Symptoms: NoneCAD History: Patent foramen ovale closure, atrial fibrillationRisk Factors: Hypertension, lipid abnormality, CVABMI: 26.0Medicatio ns: Eliquis, Lopressor, rosuvastatin, Fosamax, hydralazine STRESS PROTOCOL:Pharmacologic stress was achieved with a 10-second intravenous infusion of regadenoson 0.4 mg. IMAGING PROTOCOL:Limited low-dose CT imaging was performed for attenuation correction. 40 mCi of Rb-82 chloride was injected intravenously at rest, and PET images were obtained. Then, 40.1 mCi of Rb-82 chloride was injected intravenously at peak stress, and PET images were obtained. REST FINDINGS:HR: 106 /minBP: 118/71 mmHgPrelim. EKG: A. Fib.Perfusion: Normal.Wall Motion: Normal (LVEF 67%).LV Volume: Normal.RV Volume: Normal. STRESS FINDINGS:HR: 136 /min (91% of MPHR)BP: 97/76 mmHgPrelim. EKG: No ischemic changes.Symptoms: None (treatment not required).Perfusion: Normal.Wall Motion: Normal (LVEF greater than 70%).LV Volume: Unchanged from rest. IMPRESSION:1. Normal study.2. Normal myocardial perfusion.3. Normal global LV function, which does not deteriorate with stress.4. Normal extracardiac tracer distribution.5. There is no prior study for comparison. Signed: Austin Cool MDReport Verified Date/Time: 09/27/2020 14:12:01 [facility] METABOLIC PANEL 2020-09-27 05:28:00 Test Item Value Reference Range Interpretation Comments SODIUM (BEAKER) 139 meq/L 136-145 (test code = 381) POTASSIUM (BEAKER) 3.5 meq/L 3.5-5.1 (test code = 379) CHLORIDE (BEAKER) 105 meq/L 98-107 (test code = 382) CO2 (BEAKER) (test 26 meq/L 22-29 code = 355) BLOOD UREA NITROGEN 12 mg/dL 7-21 (BEAKER) (test code = 354) CREATININE (BEAKER) 0.69 mg/dL 0.57-1.25 (test code = 358) GLUCOSE RANDOM 100 mg/dL 70-105 (BEAKER) (test code = 652) CALCIUM (BEAKER) 8.8 mg/dL 8.4-10.2 (test code = 697) EGFR (BEAKER) (test 84 mL/min/1.73 ESTIMA JUAN GFR IS code = 1092) sq m NOT ACCURATE CREATININE CLEARANCE IN PREDICTING GLOMERULAR FILTRATION RATE . ESTIMATED GFR I S NOT APPLICABLE FOR DIALYSIS PATIEN TS. Automotive Starter Repairer ID - LYNDON [id number] 05:28:00 Test Item Value Reference Range Interpretation Comments MAGNESIUM (BEAKER) (test code = 1.8 mg/dL 1.6-2.6 627) Automotive Starter Repairer ID - LYNDON MCBC W/PLT COUNT & AUTO [id number] 05:14:00 Test Item Value Reference Range Interpretation Comments WHITE BLOOD CELL COUNT (BEAKER) 4.9 K/ L 3.5-10.5 (test code = 775) RED BLOOD CELL COUNT (BEAKER) 3.72 M/ L 3.93-5.22 L (test code = 761) HEMOGLOBIN (BEAKER) (test code = 11.1 GM/DL 11.2-15.7 L 410) HEMATOCRIT (BEAKER) (test code = 34.5 % 34.1-44.9 411) MEAN CORPUSCULAR VOLUME (BEAKER) 92.7 fL 79.4-94.8 (test code = 753) MEAN CORPUSCULAR HEMOGLOBIN 29.8 pg 25.6-32.2 (BEAKER) (test code = 751) MEAN CORPUSCULAR HEMOGLOBIN CONC 32.2 GM/DL 32.2-35.5 (BEAKER) (test code = 752) RED CELL DISTRIBUTION WIDTH 14.1 % 11.7-14.4 (BEAKER) (test code = 412) PLATELET COUNT (BEAKER) (test 191 K/CU MM 150-450 code = 756) MEAN PLATELET VOLUME (BEAKER) 12.0 fL 9.4-12.3 (test code = 754) NUCLEATED RED BLOOD CELLS 0 /100 WBC 0-0 (BEAKER) (test code = 413) NEUTROPHILS RELATIVE PERCENT 53 % (BEAKER) (test code = 429) LYMPHOCYTES RELATIVE PERCENT 38 % (BEAKER) (test code = 430) MONOCYTES RELATIVE PERCENT 8 % (BEAKER) (test code = 431) EOSINOPHILS RELATIVE PERCENT 1 % (BEAKER) (test code = 432) BASOPHILS RELATIVE PERCENT 0 % (BEAKER) (test code = 437) NEUTROPHILS ABSOLUTE COUNT 2.56 K/ L 1.56-6.13 (BEAKER) (test code = 670) LYMPHOCYTES ABSOLUTE COUNT 1.85 K/ L 1.18-3.74 (BEAKER) (test code = 414) MONOCYTES ABSOLUTE COUNT (BEAKER) 0.38 K/ L 0.24-0.36 H (test code = 415) EOSINOPHILS ABSOLUTE COUNT 0.06 K/ L 0.04-0.36 (BEAKER) (test code = 416) BASOPHILS ABSOLUTE COUNT (BEAKER) 0.02 K/ L 0.01-0.08 (test code = 417) IMMATURE GRANULOCYTES-RELATIVE 0 % 0-1 PERCENT (BEAKER) (test code = 2801) SARS-COV2/RT-PCR ([facility])2020-09-27 01:08:00 Test Item Value Reference Range Interpretation Comments SARS-COV2/RT-PCR (test Negative Not Detected, Negative, code = 7189157) See external report for linked test SARS-COV-2 PERFORMING LAB [facility] (test code = 5430790) Negative result for this test determines that SARS-CoV-2 RNA was not present in the specimen above the Limit of Detection (LOD). However, Negative results do not preclude SARS-CoV-2 infection and should not be used as the sole basis for treatment or patient management decisions. Negative results must be combined with clinical observations, patient history, and epidemiological information. A false negative result may occur if a specimen is improperly collected, transported or handled. A false negative result should be considered if patient's recent exposures or clinical presentation indicate that COVID-19 (SARS-CoV-2) is likely and diagnostic tests for other causes of illness are negative. Re-testing should be considered in cases of suspected false negatives.The limit of detection for this assay is 100 copies/mL.This SARS CoV-2 test is a real-time RT-PCR test intended for the qualitative detection of nucleic acid from SARS-CoV-2 in a nasopharyngeal swab specimen collected from individuals suspected of COVID-19 by their healthcare provider.This test has not been Food and Drug Administration (FDA) cleared or approved. This is a modified version of an approved Emergency Use Authorization (EUA) and is in the process of review by the FDA. Once authorized by the FDA, the issued EUA will be effective until the declaration that circumstances exist justifying the authorization of the emergency use ofin vitro diagnostic tests for detection and/or diagnosis of COVID-19 is terminated under Section 564(b)(2) of the Act or the EUA is revoked under Section 564(g) of the Act.Testing was performed using the Ewing SARS-CoV-2 assay.Fact Sheet for Healthcare Providers:https://www.AGELON ?/florina/RT_SAR R-XeS-5_ILD_Iura_Qiqpk_48-372316.pdfFact Sheet for Healthcare Patients:https://www.[facility] [employer] [employer]/s al/HD_BAGZ-GbL-3_Kyykrwa_Uyjm_Xmfga_GE_26-637886P9.pdfPerforming Laboratory:[facility] [place] [address] TSH/FREE T4 IF [id number] 17:07:00 Test Item Value Reference Range Interpretation Comments THYROID STIMULATING HORMONE 1.936 uIU/mL 0.350-4.940 (BEAKER) (test code = 772) Automotive Starter Repairer ID - DBHIGH SENSITIVITY TROPONIN [id number] 16:52:00 Test Item Value Reference Range Interpretation Comments HIGH SENSITIVITY 4 pg/ml See_Comment [Automated message] TROPONIN I (test code = The system which [id number]) generated this result transmitted ref erence range: <=17. Th e reference range was not used to interpr et this result as normal/abnormal . Automotive Starter Repairer ID - DBThe PARKING MANAGER STAT High Sensitivity Troponin-I results should be used in conjunctionwith other diagnostic information such as ECG, clinical observations and information, and patient symptoms to aid in the diagnosis of VT.CT, CHEST WITH IV CONTRAST- PE TEST [id number] 15:05:00Unlisted Reason for Exam - Click Yes and Enter Reason Below->No [facility] : 1950 Sex: FFINAL REPORT TECHNIQUE: CT of the chest WITH intravenous contrast (pulmonary embolism protocol). Dose modulation, iterative reconstruction, and/or weight-based adjustment of the mA/kVwas utilized to reduce the radiation dose to as low as reasonably achievable. INDICATION: PE suspected, high pretest prob COMPARISON: None. FINDINGS: LINES/TUBES: None. PULMONARY ARTERIES: Proximal to t he bifurcation of the main pulmonary artery, the main pulmonary artery is 2.1 cm in diameter. No filling defects within the pulmonary arteries to suggest pulmonary embolus. LUNGS AND AIRWAYS: Central airways are patent. There is mild intralobular septal thickening. There is bibasilar atelectasis. No focal consolidation.. PLEURA: The pleural spaces are clear. HEART AND MEDIASTINUM: There are bilateralhypodense thyroid nodules measuring up to 1.8 cm in the right thyroid lobe.. No significant mediastinal, hilar, or axillary lymphadenopathy. The heart is mildly enlarged. There is no pericardial effusion. Mild Atherosclerotic calcifications in the thoracic aorta and coronary arteries.. SOFT TISSUES AND BONES: Degenerative changes in the spine.. UPPER ABDOMEN: Unremarkable. IMPRESSION:No acute pulmonary embolism. Cardiomegaly with mild intralobular septal thickening suggesting pulmonary vascular congestion. No pleural effusion.. Bilateral thyroid nodules measuring up to 1.8 cm. Consider further evaluation with thyroid ultrasound. Signed: Cheryl Valenzuela MDReport Verified Date/Time: 09/26/2020 15:05:44 Reading Location: [facility] C013X Ortho Consult Reading Room RAD, CHEST, 1 VIEW, NON [id number] 12:02:00Reason for exam:->ATRIAL FIBRILLATIONShould this be performed at the bedside?->Yes [facility] : 1950 Sex: FFINAL REPORT CLINICAL HISTORY: ATRIAL FIBRILLATION TECHNIQUE: 1 view of the chest.COMPARISON: 08/25/2017 IMPRESSION: There is pulmonary vascular congestion with prominent interstitialopacities bilaterally. There are no significant effusions. The cardiomediastinal silhouette is magnified by technique. Signed: Roya Pickett MDReport Verified Date/Time: 09/26/2020 12:02:34 Reading Location: [facility] Radiology Reading Room B-TYPE NATRIURETIC FACTOR (BNP)2020-09-26 11:53:00 Test Item Value Reference Range Interpretation Comments B-TYPE NATRIURETIC PEPTIDE (BEAKER) 533 pg/mL 0-100 H (test code = 700) Automotive Starter Repairer ID - EDASIHIGH SENSITIVITY TROPONIN [id number] 11:45:00 Test Item Value Reference Range Interpretation Comments HIGH SENSITIVITY 4 pg/ml See_Comment [Automated message] TROPONIN I (test code = The system which [id number]) generated this result transmitted ref erence range: <=17. Th e reference range was not used to interpr et this result as normal/abnormal . Automotive Starter Repairer ID - EDASIThe PARKING MANAGER STAT High Sensitivity Troponin-I results should be used in conjunction with other diagnostic information such as ECG, clinical observations and information, and patientsymptoms to aid in the diagnosis of VT. BASIC METABOLIC [id number] 11:38:00 Test Item Value Reference Range Interpretation Comments SODIUM (BEAKER) 143 meq/L 136-145 (test code = 381) POTASSIUM (BEAKER) 3.6 meq/L 3.5-5.1 (test code = 379) CHLORIDE (BEAKER) 105 meq/L 98-107 (test code = 382) CO2 (BEAKER) (test 31 meq/L 22-29 H code = 355) BLOOD UREA NITROGEN 13 mg/dL 7-21 (BEAKER) (test code = 354) CREATININE (BEAKER) 0.79 mg/dL 0.57-1.25 (test code = 358) GLUCOSE RANDOM 84 mg/dL 70-105 (BEAKER) (test code = 652) CALCIUM (BEAKER) 10.1 mg/dL 8.4-10.2 (test code = 697) EGFR (BEAKER) (test 72 mL/min/1.73 ESTIMA JUAN GFR IS code = 1092) sq m NOT ACCURATE CREATININE CLEARANCE IN PREDICTING GLOMERULAR FILTRATION RATE . ESTIMATED GFR I S NOT APPLICABLE FOR DIALYSIS PATIEN TS. Automotive Starter Repairer ID - [id number] 11:35:00 Test Item Value Reference Range Interpretation Comments D-DIMER QUANTITATIVE (BEAKER) 0.33 MG/L FEU <0.50 (test code = 671) Intended Use: The D-Dimer Assay can be used to aid in the diagnosis of Deep Vein Thrombosis (DVT) and Pulmonary Embolism Disease (PED).In patients with low pre- test probability, various studies concerning STA Liatest D-dimer test have reported that with a cutoff value of 0.50 MG/L FEU, the Negative Predictive Value (NPV) regarding the exclusion of thrombosis is within 95-100% range. [id number] 11:33:00 Test Item Value Reference Range Interpretation Comments PROTIME (BEAKER) (test 14.4 seconds 11.9-14.2 H code = 759) INR (BEAKER) (test 1.17 See_Comment [Automat ed code = 370) message] The sy stem which generated this result transmitted reference range : <=5.90. The reference range was not used to interpret this result as normal/abnormal . PARTIAL THROMBOPLASTIN 35.0 seconds 22.5-36.0 TIME (BEAKER) (test code = 760) Effective 10/11/2018: PT Reference Range ChangeNew: 11.9-14.2 Previous: 11.7- 14.7RECOMMENDED COUMADIN/WARFARIN INR THERAPY RANGESSTANDARD DOSE: 2.0-3.0 Includes: PROPHYLAXIS for venous thrombosis, systemic embolization; TREATMENT for venous thrombosis and/or pulmonary embolus.HIGH RISK: Target INR is 2.5-3.5 for patients wiht mechanical heart valves.CBC W/PLT COUNT & AUTO [id number] 11:23:00 Test Item Value Reference Range Interpretation Comments WHITE BLOOD CELL COUNT (BEAKER) 6.4 K/ L 3.5-10.5 (test code = 775) RED BLOOD CELL COUNT (BEAKER) 4.32 M/ L 3.93-5.22 (test code = 761) HEMOGLOBIN (BEAKER) (test code = 13.0 GM/DL 11.2-15.7 410) HEMATOCRIT (BEAKER) (test code = 40.0 % 34.1-44.9 411) MEAN CORPUSCULAR VOLUME (BEAKER) 92.6 fL 79.4-94.8 (test code = 753) MEAN CORPUSCULAR HEMOGLOBIN 30.1 pg 25.6-32.2 (BEAKER) (test code = 751) MEAN CORPUSCULAR HEMOGLOBIN CONC 32.5 GM/DL 32.2-35.5 (BEAKER) (test code = 752) RED CELL DISTRIBUTION WIDTH 14.0 % 11.7-14.4 (BEAKER) (test code = 412) PLATELET COUNT (BEAKER) (test 214 K/CU MM 150-450 code = 756) MEAN PLATELET VOLUME (BEAKER) 11.8 fL 9.4-12.3 (test code = 754) NUCLEATED RED BLOOD CELLS 0 /100 WBC 0-0 (BEAKER) (test code = 413) NEUTROPHILS RELATIVE PERCENT 65 % (BEAKER) (test code = 429) LYMPHOCYTES RELATIVE PERCENT 26 % (BEAKER) (test code = 430) MONOCYTES RELATIVE PERCENT 9 % (BEAKER) (test code = 431) EOSINOPHILS RELATIVE PERCENT 0 % (BEAKER) (test code = 432) BASOPHILS RELATIVE PERCENT 0 % (BEAKER) (test code = 437) NEUTROPHILS ABSOLUTE COUNT 4.15 K/ L 1.56-6.13 (BEAKER) (test code = 670) LYMPHOCYTES ABSOLUTE COUNT 1.63 K/ L 1.18-3.74 (BEAKER) (test code = 414) MONOCYTES ABSOLUTE COUNT (BEAKER) 0.54 K/ L 0.24-0.36 H (test code = 415) EOSINOPHILS ABSOLUTE COUNT 0.02 K/ L 0.04-0.36 L (BEAKER) (test code = 416) BASOPHILS ABSOLUTE COUNT (BEAKER) 0.02 K/ L 0.01-0.08 (test code = 417) IMMATURE GRANULOCYTES-RELATIVE 0 % 0-1 PERCENT (BEAKER) (test code = 2801) CREATINE KINASE (CK), TOTAL AND [id number] 19:34:00 Test Item Value Reference Range Interpretation Comments CREATINE KINASE TOTAL (BEAKER) 118 U/L 29-200 (test code = 380) CREATINE KINASE-MB (BEAKER) (test 2.0 ng/mL 0.0-6.6 code = 750) CREATINE KINASE-MB INDEX (BEAKER) 1.7 % (test code = 395) CK-MB Reference Range:<6.7 Normal6.7-10.0 Borderline>10.0 AbnormalTROPONIN [id number] 19:34:00 Test Item Value Reference Range Interpretation Comments TROPONIN I (BEAKER) (test code = 397) < ng/mL 0.00-0.03 Troponin I (TnI) levels must be interpreted in the context of the presenting symptoms and the clinical findings. Elevated TnI levels indicate myocardial damage, but are not specific for ischemic heart disease. Elevated TnI levels are seen in patients with other cardiac conditions (including myocarditis and congestive heart failure), and slight TnI elevations occur in patients with other conditions, including sepsis, renal failure, acidosis, acute neurological disease, and persistent tachyarrhythmia.BASIC METABOLIC [id number] 19:27:00 Test Item Value Reference Range Interpretation Comments SODIUM (BEAKER) 142 meq/L 136-145 (test code = 381) POTASSIUM (BEAKER) 4.0 meq/L 3.5-5.1 (test code = 379) CHLORIDE (BEAKER) 107 meq/L 98-107 (test code = 382) CO2 (BEAKER) (test 27 meq/L 22-29 code = 355) BLOOD UREA NITROGEN 15 mg/dL 7-21 (BEAKER) (test code = 354) CREATININE (BEAKER) 1.07 mg/dL 0.57-1.25 (test code = 358) GLUCOSE RANDOM 98 mg/dL 70-105 (BEAKER) (test code = 652) CALCIUM (BEAKER) 10.2 mg/dL 8.4-10.2 (test code = 697) EGFR (BEAKER) (test 51 mL/min/1.73 ESTIMA JUAN GFR IS code = 1092) sq m NOT ACCURATE CREATININE CLEARANCE IN PREDICTING GLOMERULAR FILTRATION RATE . ESTIMATED GFR I S NOT APPLICABLE FOR DIALYSIS PATIEN TS. CBC W/PLT COUNT & AUTO [id number] 19:22:00 Test Item Value Reference Range Interpretation Comments WHITE BLOOD CELL COUNT (BEAKER) 4.9 K/ L 3.5-10.5 (test code = 775) RED BLOOD CELL COUNT (BEAKER) 4.31 M/ L 3.93-5.22 (test code = 761) HEMOGLOBIN (BEAKER) (test code = 12.8 GM/DL 11.2-15.7 410) HEMATOCRIT (BEAKER) (test code = 40.9 % 34.1-44.9 411) MEAN CORPUSCULAR VOLUME (BEAKER) 94.9 fL 79.4-94.8 H (test code = 753) MEAN CORPUSCULAR HEMOGLOBIN 29.7 pg 25.6-32.2 (BEAKER) (test code = 751) MEAN CORPUSCULAR HEMOGLOBIN CONC 31.3 GM/DL 32.2-35.5 L (BEAKER) (test code = 752) RED CELL DISTRIBUTION WIDTH 14.1 % 11.7-14.4 (BEAKER) (test code = 412) PLATELET COUNT (BEAKER) (test 197 K/CU MM 150-450 code = 756) MEAN PLATELET VOLUME (BEAKER) 12.7 fL 9.4-12.3 H (test code = 754) NUCLEATED RED BLOOD CELLS 0 /100 WBC 0-0 (BEAKER) (test code = 413) NEUTROPHILS RELATIVE PERCENT 61 % (BEAKER) (test code = 429) LYMPHOCYTES RELATIVE PERCENT 29 % (BEAKER) (test code = 430) MONOCYTES RELATIVE PERCENT 9 % (BEAKER) (test code = 431) EOSINOPHILS RELATIVE PERCENT 1 % (BEAKER) (test code = 432) BASOPHILS RELATIVE PERCENT 1 % (BEAKER) (test code = 437) NEUTROPHILS ABSOLUTE COUNT 3.01 K/ L 1.56-6.13 (BEAKER) (test code = 670) LYMPHOCYTES ABSOLUTE COUNT 1.41 K/ L 1.18-3.74 (BEAKER) (test code = 414) MONOCYTES ABSOLUTE COUNT (BEAKER) 0.42 K/ L 0.24-0.36 H (test code = 415) EOSINOPHILS ABSOLUTE COUNT 0.03 K/ L 0.04-0.36 L (BEAKER) (test code = 416) BASOPHILS ABSOLUTE COUNT (BEAKER) 0.03 K/ L 0.01-0.08 (test code = 417) IMMATURE GRANULOCYTES-RELATIVE 0 % 0-1 PERCENT (BEAKER) (test code = 2801) CT, BRAIN, WITHOUT [id number] 18:43:00Reason for exam:- >HYPERTENSIONWhat is the patient's sedation requirement?->No SedationFINAL REPORT CT head without contrast. Comparisons: October 12, 2017 Reason for exam: HYPERTENSIONVISION CHANGES. Discussion: Multiple axial CT images of the head are provided without contrast evaluated in brain and bone windows. Dose modulation, iterative reconstruction, and/or weight based adjustment of the mA/kV was utilized to reduce the radiation dose to as low as reasonably achievable. There is no CT evidence of intracranial hemorrhage, mass- effect, hydrocephalus, shift, or extra-axial collections. A left middle frontal gyrus infarct has a chronic appearance. The visualized dural sinus regions, orbital contents, paranasal sinuses, bones and surrounding soft tissues are unremarkable. Impressions: 1. No specific evidence of acute intracranial abnormality. Signed: Michael BassettMDReport Verified Date/Time: 12/20/2017 18:43:58 [id number] 06:26:00 Test Item Value Reference Range Interpretation Comments MAGNESIUM (BEAKER) (test code = 1.9 mg/dL 1.6-2.6 627) BASIC METABOLIC [id number] 06:26:00 Test Item Value Reference Range Interpretation Comments SODIUM (BEAKER) 143 meq/L 136-145 (test code = 381) POTASSIUM (BEAKER) 3.6 meq/L 3.5-5.1 (test code = 379) CHLORIDE (BEAKER) 110 meq/L 98-107 H (test code = 382) CO2 (BEAKER) (test 25 meq/L 22-29 code = 355) BLOOD UREA NITROGEN 20 mg/dL 7-21 (BEAKER) (test code = 354) CREATININE (BEAKER) 0.76 mg/dL 0.57-1.25 (test code = 358) GLUCOSE RANDOM 94 mg/dL 70-105 (BEAKER) (test code = 652) CALCIUM (BEAKER) 8.6 mg/dL 8.4-10.2 (test code = 697) EGFR (BEAKER) (test 75 mL/min/1.73 ESTIMA JUAN GFR IS code = 1092) sq m NOT ACCURATE CREATININE CLEARANCE IN PREDICTING GLOMERULAR FILTRATION RATE . ESTIMATED GFR I S NOT APPLICABLE FOR DIALYSIS PATIEN TS. CBC W/PLT COUNT & AUTO [id number] 06:02:00 Test Item Value Reference Range Interpretation Comments WHITE BLOOD CELL COUNT (BEAKER) 10.3 K/ L 3.5-10.5 (test code = 775) RED BLOOD CELL COUNT (BEAKER) 3.18 M/ L 3.93-5.22 L (test code = 761) HEMOGLOBIN (BEAKER) (test code = 9.3 GM/DL 11.2-15.7 L 410) HEMATOCRIT (BEAKER) (test code = 29.5 % 34.1-44.9 L 411) MEAN CORPUSCULAR VOLUME (BEAKER) 92.8 fL 79.4-94.8 (test code = 753) MEAN CORPUSCULAR HEMOGLOBIN 29.2 pg 25.6-32.2 (BEAKER) (test code = 751) MEAN CORPUSCULAR HEMOGLOBIN CONC 31.5 GM/DL 32.2-35.5 L (BEAKER) (test code = 752) RED CELL DISTRIBUTION WIDTH 13.3 % 11.7-14.4 (BEAKER) (test code = 412) PLATELET COUNT (BEAKER) (test 161 K/CU MM 150-450 code = 756) MEAN PLATELET VOLUME (BEAKER) 13.3 fL 9.4-12.3 H (test code = 754) NUCLEATED RED BLOOD CELLS 0 /100 WBC 0-0 (BEAKER) (test code = 413) NEUTROPHILS RELATIVE PERCENT 74 % (BEAKER) (test code = 429) LYMPHOCYTES RELATIVE PERCENT 18 % (BEAKER) (test code = 430) MONOCYTES RELATIVE PERCENT 7 % (BEAKER) (test code = 431) EOSINOPHILS RELATIVE PERCENT 0 % (BEAKER) (test code = 432) BASOPHILS RELATIVE PERCENT 0 % (BEAKER) (test code = 437) NEUTROPHILS ABSOLUTE COUNT 7.66 K/ L 1.56-6.13 H (BEAKER) (test code = 670) LYMPHOCYTES ABSOLUTE COUNT 1.83 K/ L 1.18-3.74 (BEAKER) (test code = 414) MONOCYTES ABSOLUTE COUNT (BEAKER) 0.76 K/ L 0.24-0.36 H (test code = 415) EOSINOPHILS ABSOLUTE COUNT 0.02 K/ L 0.04-0.36 L (BEAKER) (test code = 416) BASOPHILS ABSOLUTE COUNT (BEAKER) 0.02 K/ L 0.01-0.08 (test code = 417) IMMATURE GRANULOCYTES-RELATIVE 0 % 0-1 PERCENT (BEAKER) (test code = 2801) RAD, CHEST, 2 [id number] 20:15:00Reason for exam:->Rule out effusion FINAL REPORT Chest 2 views 08/25/2017 8:15 PM CLINICAL HISTORY: effusion COMPARISON: None available FINDINGS: The lungs are clear. Cardiomediastinal contours are within normal limits. A septal occlusion devices present.The central pulmonary vasculature is not engorged. There is shallow arcuate dextroscoliosis in the thoracolumbar spine. There is a tendon anchor screw in the right humerus. IMPRESSION: No acute radiographic abnormalities. Signed: Sarbjit Lisaort Verified Date/Time: 08/25/2017 20:15:27 Reading Location: [facility] Radiology Reading Room RAD, CHEST, 1 VIEW, NON [id number] 10:55:00Reason for exam:->Rule out pericardial effusionShould this be performed at the bedside?->YesFINAL REPORT Chest one view INDICATION: Pericardial effusion. COMPARISON: None available IMPRESSION: The cardiac silhouette is prominent. A pericardial effusion cannot be excluded. Advise echocardiography as clinically warranted. Linear foreign matter overlies the heart, probably intracardiac device. The aorta is mildly ectatic/tortuous. There is no focal lung consolidation, vascular congestion, pleural effusion, or pneumothorax. Osseous degenerative changes and a right humeral suture anchor are noted. Signed: Sanjeev Cuellar MDReport Verified Date/Time: 08/25/2017 10:55:31 Reading Location: [facility] Radiology Reading Room [id number] 05:26:00 Test Item Value Reference Range Interpretation Comments MAGNESIUM (BEAKER) (test code = 2.0 mg/dL 1.6-2.6 627) BASIC METABOLIC [id number] 05:26:00 Test Item Value Reference Range Interpretation Comments SODIUM (BEAKER) 139 meq/L 136-145 (test code = 381) POTASSIUM (BEAKER) 3.8 meq/L 3.5-5.1 (test code = 379) CHLORIDE (BEAKER) 108 meq/L 98-107 H (test code = 382) CO2 (BEAKER) (test 23 meq/L 22-29 code = 355) BLOOD UREA NITROGEN 19 mg/dL 7-21 (BEAKER) (test code = 354) CREATININE (BEAKER) 0.78 mg/dL 0.57-1.25 (test code = 358) GLUCOSE RANDOM 179 mg/dL 70-105 H (BEAKER) (test code = 652) CALCIUM (BEAKER) 8.9 mg/dL 8.4-10.2 (test code = 697) EGFR (BEAKER) (test 73 mL/min/1.73 ESTIMA JUAN GFR IS code = 1092) sq m NOT ACCURATE CREATININE CLEARANCE IN PREDICTING GLOMERULAR FILTRATION RATE . ESTIMATED GFR I S NOT APPLICABLE FOR DIALYSIS PATIEN TS. CBC W/PLT COUNT & AUTO [id number] 05:20:00 Test Item Value Reference Range Interpretation Comments WHITE BLOOD CELL COUNT (BEAKER) 9.7 K/ L 3.5-10.5 (test code = 775) RED BLOOD CELL COUNT (BEAKER) 3.58 M/ L 3.93-5.22 L (test code = 761) HEMOGLOBIN (BEAKER) (test code = 10.5 GM/DL 11.2-15.7 L 410) HEMATOCRIT (BEAKER) (test code = 32.8 % 34.1-44.9 L 411) MEAN CORPUSCULAR VOLUME (BEAKER) 91.6 fL 79.4-94.8 (test code = 753) MEAN CORPUSCULAR HEMOGLOBIN 29.3 pg 25.6-32.2 (BEAKER) (test code = 751) MEAN CORPUSCULAR HEMOGLOBIN CONC 32.0 GM/DL 32.2-35.5 L (BEAKER) (test code = 752) RED CELL DISTRIBUTION WIDTH 12.8 % 11.7-14.4 (BEAKER) (test code = 412) PLATELET COUNT (BEAKER) (test 190 K/CU MM 150-450 code = 756) MEAN PLATELET VOLUME (BEAKER) 12.5 fL 9.4-12.3 H (test code = 754) NUCLEATED RED BLOOD CELLS 0 /100 WBC 0-0 (BEAKER) (test code = 413) NEUTROPHILS RELATIVE PERCENT 90 % (BEAKER) (test code = 429) LYMPHOCYTES RELATIVE PERCENT 6 % (BEAKER) (test code = 430) MONOCYTES RELATIVE PERCENT 3 % (BEAKER) (test code = 431) EOSINOPHILS RELATIVE PERCENT 0 % (BEAKER) (test code = 432) BASOPHILS RELATIVE PERCENT 0 % (BEAKER) (test code = 437) NEUTROPHILS ABSOLUTE COUNT 8.68 K/ L 1.56-6.13 H (BEAKER) (test code = 670) LYMPHOCYTES ABSOLUTE COUNT 0.59 K/ L 1.18-3.74 L (BEAKER) (test code = 414) MONOCYTES ABSOLUTE COUNT (BEAKER) 0.33 K/ L 0.24-0.36 (test code = 415) EOSINOPHILS ABSOLUTE COUNT 0.00 K/ L 0.04-0.36 L (BEAKER) (test code = 416) BASOPHILS ABSOLUTE COUNT (BEAKER) 0.01 K/ L 0.01-0.08 (test code = 417) IMMATURE GRANULOCYTES-RELATIVE 0 % 0-1 PERCENT (BEAKER) (test code = 2801) BASIC METABOLIC [id number] 19:18:00 Test Item Value Reference Range Interpretation Comments SODIUM (BEAKER) 143 meq/L 136-145 (test code = 381) POTASSIUM (BEAKER) 3.6 meq/L 3.5-5.1 Specimen slightly (test code = 379) hemolyzed CHLORIDE (BEAKER) 107 meq/L 98-107 (test code = 382) CO2 (BEAKER) (test 25 meq/L 22-29 code = 355) BLOOD UREA NITROGEN 14 mg/dL 7-21 (BEAKER) (test code = 354) CREATININE (BEAKER) 0.73 mg/dL 0.57-1.25 Specimen slightly (test code = 358) hemolyzed GLUCOSE RANDOM 177 mg/dL 70-105 H (BEAKER) (test code = 652) CALCIUM (BEAKER) 8.7 mg/dL 8.4-10.2 (test code = 697) EGFR (BEAKER) (test 79 mL/min/1.73 ESTIMA JUAN GFR IS code = 1092) sq m NOT ACCURATE CREATININE CLEARANCE IN PREDICTING GLOMERULAR FILTRATION RATE . ESTIMATED GFR I S NOT APPLICABLE FOR DIALYSIS PATIEN TS. [id number] 19:15:00 Test Item Value Reference Range Interpretation Comments ACTIVATED CLOTTING TIME 147 sec TEST ED AT [facility] 6720 (BEAKER) (test code = [place] 441) [address] CBC W/PLT COUNT & AUTO [id number] 19:02:00 Test Item Value Reference Range Interpretation Comments WHITE BLOOD CELL COUNT (BEAKER) 9.3 K/ L 3.5-10.5 (test code = 775) RED BLOOD CELL COUNT (BEAKER) 3.80 M/ L 3.93-5.22 L (test code = 761) HEMOGLOBIN (BEAKER) (test code = 11.4 GM/DL 11.2-15.7 410) HEMATOCRIT (BEAKER) (test code = 35.2 % 34.1-44.9 411) MEAN CORPUSCULAR VOLUME (BEAKER) 92.6 fL 79.4-94.8 (test code = 753) MEAN CORPUSCULAR HEMOGLOBIN 30.0 pg 25.6-32.2 (BEAKER) (test code = 751) MEAN CORPUSCULAR HEMOGLOBIN CONC 32.4 GM/DL 32.2-35.5 (BEAKER) (test code = 752) RED CELL DISTRIBUTION WIDTH 12.7 % 11.7-14.4 (BEAKER) (test code = 412) PLATELET COUNT (BEAKER) (test 198 K/CU MM 150-450 code = 756) MEAN PLATELET VOLUME (BEAKER) 12.4 fL 9.4-12.3 H (test code = 754) NUCLEATED RED BLOOD CELLS 0 /100 WBC 0-0 (BEAKER) (test code = 413) NEUTROPHILS RELATIVE PERCENT 89 % (BEAKER) (test code = 429) LYMPHOCYTES RELATIVE PERCENT 8 % (BEAKER) (test code = 430) MONOCYTES RELATIVE PERCENT 2 % (BEAKER) (test code = 431) EOSINOPHILS RELATIVE PERCENT 0 % (BEAKER) (test code = 432) BASOPHILS RELATIVE PERCENT 0 % (BEAKER) (test code = 437) NEUTROPHILS ABSOLUTE COUNT 8.29 K/ L 1.56-6.13 H (BEAKER) (test code = 670) LYMPHOCYTES ABSOLUTE COUNT 0.76 K/ L 1.18-3.74 L (BEAKER) (test code = 414) MONOCYTES ABSOLUTE COUNT (BEAKER) 0.19 K/ L 0.24-0.36 L (test code = 415) EOSINOPHILS ABSOLUTE COUNT 0.00 K/ L 0.04-0.36 L (BEAKER) (test code = 416) BASOPHILS ABSOLUTE COUNT (BEAKER) 0.01 K/ L 0.01-0.08 (test code = 417) IMMATURE GRANULOCYTES-RELATIVE 0 % 0-1 PERCENT (BEAKER) (test code = 2801) [id number] 15:38:00 Test Item Value Reference Range Interpretation Comments ACTIVATED CLOTTING TIME 257 sec TEST ED [facility] [place] [address] [facility] (test code = [facility]) [id number] 15:05:00 Test Item Value Reference Range Interpretation Comments ACTIVATED CLOTTING TIME 235 sec TEST ED AT [place] [address] ([facility]) (test code = [place] [address]) [address] BASIC METABOLIC [id number] 10:25:00 Test Item Value Reference Range Interpretation Comments SODIUM (BEAKER) 139 meq/L 136-145 (test code = 381) POTASSIUM (BEAKER) 3.9 meq/L 3.5-5.1 (test code = 379) CHLORIDE (BEAKER) 106 meq/L 98-107 (test code = 382) CO2 (BEAKER) (test 26 meq/L 22-29 code = 355) BLOOD UREA NITROGEN 16 mg/dL 7-21 (BEAKER) (test code = 354) CREATININE (BEAKER) 0.72 mg/dL 0.57-1.25 (test code = 358) GLUCOSE RANDOM 87 mg/dL 70-105 (BEAKER) (test code = 652) CALCIUM (BEAKER) 9.7 mg/dL 8.4-10.2 (test code = 697) EGFR (BEAKER) (test 80 mL/min/1.73 ESTIMA JUAN GFR IS code = 1092) sq m NOT ACCURATE CREATININE CLEARANCE IN PREDICTING GLOMERULAR FILTRATION RATE . ESTIMATED GFR I S NOT APPLICABLE FOR DIALYSIS PATIEN TS. [id number] 10:11:00 Test Item Value Reference Range Interpretation Comments PARTIAL THROMBOPLASTIN TIME 34.2 seconds 22.5-36.0 (BEAKER) (test code = 760) Within 24 hours, if on CoumadinPROTHROMBIN [id number] 10:10:00 Test Item Value Reference Range Interpretation Comments PROTIME (BEAKER) (test code = 13.9 seconds 11.7-14.7 759) INR (BEAKER) (test code = 370) 1.1 <=5.9 RECOMMENDED COUMADIN/WARFARIN INR THERAPY RANGESSTANDARD DOSE: 2.0 - 3.0 Includes: PROPHYLAXIS for venous thrombosis, systemic embolization; TREATMENT for venous thrombosis and/or pulmonary embolus.HIGH RISK: Target INR is 2.5-3.5 for patients with mechanical heart valves.Within 24 hours, if on CoumadinCBC (HEMOGRAM ONLY)2017-08-24 09:58:00 Test Item Value Reference Range Interpretation Comments WHITE BLOOD CELL COUNT (BEAKER) 4.7 K/ L 3.5-10.5 (test code = 775) RED BLOOD CELL COUNT (BEAKER) 4.13 M/ L 3.93-5.22 (test code = 761) HEMOGLOBIN (BEAKER) (test code = 12.2 GM/DL 11.2-15.7 410) HEMATOCRIT (BEAKER) (test code = 38.2 % 34.1-44.9 411) MEAN CORPUSCULAR VOLUME (BEAKER) 92.5 fL 79.4-94.8 (test code = 753) MEAN CORPUSCULAR HEMOGLOBIN 29.5 pg 25.6-32.2 (BEAKER) (test code = 751) MEAN CORPUSCULAR HEMOGLOBIN CONC 31.9 GM/DL 32.2-35.5 L (BEAKER) (test code = 752) RED CELL DISTRIBUTION WIDTH 13.1 % 11.7-14.4 (BEAKER) (test code = 412) PLATELET COUNT (BEAKER) (test 202 K/CU MM 150-450 code = 756) MEAN PLATELET VOLUME (BEAKER) 12.7 fL 9.4-12.3 H (test code = 754) NUCLEATED RED BLOOD CELLS 0 /100 WBC 0-0 (BEAKER) (test code = 413) CT, BRAIN, WITHOUT [id number] 14:43:00FINAL REPORT CT Head without contrast CLINICAL HISTORY: nausea, dizziness TECHNIQUE: Contiguous axial images through the head without contrast. This exam was performed according tothe departmental dose optimization program which includes automated exposure control, adjustment of the mA and/or kV according to the patient size, and/or use of an iterative reconstruction technique. COMPARISON: None FINDINGS: There is no CT evidence of acute infarct or intracranial hemorrhage. Thereis a chronic left frontal lobe infarct. There is mild generalized sulcal prominence without hydrocephalus, midline shift, or apparent mass effect. There are no extra-axial fluid collections. The skull is intact. The visualized paranasal sinuses are well-aerated. IMPRESSION: No CT evidence of acute infarct, hemorrhage, or hydrocephalus. Chronic left mid frontal lobe infarct. Signed: Roya Pickett MDReport Verified Date/Time: 08/12/2017 14:43:45 Reading Location: [facility] Radiology Reading Room [facility] METABOLIC [id number] 06:44:00 Test Item Value Reference Range Interpretation Comments SODIUM (BEAKER) 138 meq/L 136-145 (test code = 381) POTASSIUM (BEAKER) 3.8 meq/L 3.5-5.1 (test code = 379) CHLORIDE (BEAKER) 105 meq/L 98-107 (test code = 382) CO2 (BEAKER) (test 23 meq/L 22-29 code = 355) BLOOD UREA NITROGEN 20 mg/dL 7-21 (BEAKER) (test code = 354) CREATININE (BEAKER) 0.80 mg/dL 0.57-1.25 (test code = 358) GLUCOSE RANDOM 96 mg/dL 70-105 (BEAKER) (test code = 652) CALCIUM (BEAKER) 9.0 mg/dL 8.4-10.2 (test code = 697) EGFR (BEAKER) (test mL/min/1.73 INSUFFIC IENT CLINICAL code = 1092) sq m DATA TO CALCULA TE ESTIMATED GFR. CBC W/PLT COUNT & AUTO [id number] 05:20:00 Test Item Value Reference Range Interpretation Comments WHITE BLOOD CELL COUNT (BEAKER) 6.0 K/ L 3.5-10.5 (test code = 775) RED BLOOD CELL COUNT (BEAKER) 4.20 M/ L 3.93-5.22 (test code = 761) HEMOGLOBIN (BEAKER) (test code = 12.4 GM/DL 11.2-15.7 410) HEMATOCRIT (BEAKER) (test code = 38.4 % 34.1-44.9 411) MEAN CORPUSCULAR VOLUME (BEAKER) 91.4 fL 79.4-94.8 (test code = 753) MEAN CORPUSCULAR HEMOGLOBIN 29.5 pg 25.6-32.2 (BEAKER) (test code = 751) MEAN CORPUSCULAR HEMOGLOBIN CONC 32.3 GM/DL 32.2-35.5 (BEAKER) (test code = 752) RED CELL DISTRIBUTION WIDTH 13.0 % 11.7-14.4 (BEAKER) (test code = 412) PLATELET COUNT (BEAKER) (test 211 K/CU MM 150-450 code = 756) MEAN PLATELET VOLUME (BEAKER) 11.9 fL 9.4-12.3 (test code = 754) NUCLEATED RED BLOOD CELLS 0 /100 WBC 0-0 (BEAKER) (test code = 413) NEUTROPHILS RELATIVE PERCENT 58 % (BEAKER) (test code = 429) LYMPHOCYTES RELATIVE PERCENT 31 % (BEAKER) (test code = 430) MONOCYTES RELATIVE PERCENT 10 % (BEAKER) (test code = 431) EOSINOPHILS RELATIVE PERCENT 1 % (BEAKER) (test code = 432) BASOPHILS RELATIVE PERCENT 0 % (BEAKER) (test code = 437) NEUTROPHILS ABSOLUTE COUNT 3.50 K/ L 1.56-6.13 (BEAKER) (test code = 670) LYMPHOCYTES ABSOLUTE COUNT 1.85 K/ L 1.18-3.74 (BEAKER) (test code = 414) MONOCYTES ABSOLUTE COUNT (BEAKER) 0.63 K/ L 0.24-0.36 H (test code = 415) EOSINOPHILS ABSOLUTE COUNT 0.04 K/ L 0.04-0.36 (BEAKER) (test code = 416) BASOPHILS ABSOLUTE COUNT (BEAKER) 0.01 K/ L 0.01-0.08 (test code = 417) IMMATURE GRANULOCYTES-RELATIVE 0 % 0-1 PERCENT (BEAKER) (test code = 2801) MR, MRA, BRAIN, WITHOUT [id number] 07:31:00Reason for exam:- >StrokeWhat is the patient's sedation requirement?->No SedationFINAL REPORT MRA head and neck Comparison: None Reason for exam: Stroke Discussion: 2 D and 3-D [id number] MRA of the head and neck was provided with maximal intensity projection 3-D reconstructions of the cervical and intracranial arterial vasculatures. NASCET criteria are utilized when considering stenosis. Normal flow cervical carotid systems and cervical segment vertebralarteries with no stenosis by NASCET criteria. Normal flow intracranial internal carotid arteries andin the carotid terminus branches proximally. 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 Normal flow vertebrobasilar and proximal posterior cerebral arteries. There is prominent left posterior communicator. Impressions: Negative MRA neck and head. Signed: Michael Bassett Verified Date/Time: 07/17/2017 07:31:51 Reading Location: [address] Reading Room MR, MRA, NECK, WITHOUT IV CONTRAST 2017-07-17 07:31:00FINAL REPORT MRA head and neck Comparison: None Reason for exam: Stroke Discussion: 2 D and 3-D [id number] MRA of the head and neck was provided with maximal intensity projection 3-D reconstructions of the cervical and intracranial arterial vasculatures. NASCET criteria are utilized when considering stenosis. Normal flow cervical carotid systems and cervical segment vertebralarteries with no stenosis by NASCET criteria. Normal flow intracranial internal carotid arteries andin the carotid terminus branches proximally. 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 Normal flow vertebrobasilar and proximal posterior cerebral arteries. There is prominent left posterior communicator. Impressions: Negative MRA neck and head. Signed: Michael Basestt Verified Date/Time: 07/17/2017 07:31:51 Reading Location: [address] Reading Room MR, BRAIN, WITHOUT [id number] 07:30:00Reason for exam:->StrokeWhat is the patient's sedation requirement?->No SedationFINAL REPORT MRI brain Comparison: None Reason for exam: StrokeStroke Discussion: Multiplanar MR imaging the brain was performed using T1, T2, FLAIR, FFE, diffusion, and ADC map imaging. Imaging discussed with the ICU neurology resident at the time of dictation. There is a 2 cm hematoma involving the posterior aspect of the left-sided middle frontal gyrus. There is minimal surrounding edema and diffusion restriction. Some of the diffusion restricted components have a gyriform appearance. There is no significant associated mass effect. No hydrocephalus, midline shift, subdural collection. Mild microvascular changes are present in the cerebral hemispheres.. There are no other areas of abnormal diffusion restriction. Flow-voids are seen in the basilar and internal carotid arteries as well as in the large posterior dural sinuses. The pineal, sella, and craniocervical junction regions are unremarkable. The visualized orbital contents, paranasal sinuses, skullbase and surroundingsoft tissues are unremarkable. . Impressions: Left middle frontal gyrus 2 cm hematoma with surrounding diffusion restriction. No significant mass effect. It is unclear whether this is hemorrhagic transformation of a small infarct or whether this is a primary hemorrhage. Signed: Michael Bassett Verified Date/Time: 07/17/2017 07:30:03 Reading Location: [address] Reading Room BASIC METABOLIC [id number] 04:48:00 Test Item Value Reference Range Interpretation Comments SODIUM (BEAKER) 138 meq/L 136-145 (test code = 381) POTASSIUM (BEAKER) 3.8 meq/L 3.5-5.1 (test code = 379) CHLORIDE (BEAKER) 105 meq/L 98-107 (test code = 382) CO2 (BEAKER) (test 26 meq/L 22-29 code = 355) BLOOD UREA NITROGEN 12 mg/dL 7-21 (BEAKER) (test code = 354) CREATININE (BEAKER) 0.72 mg/dL 0.57-1.25 (test code = 358) GLUCOSE RANDOM 104 mg/dL 70-105 (BEAKER) (test code = 652) CALCIUM (BEAKER) 9.2 mg/dL 8.4-10.2 (test code = 697) EGFR (BEAKER) (test mL/min/1.73 INSUFFIC IENT CLINICAL code = 1092) sq m DATA TO CALCULA TE ESTIMATED GFR. CBC W/PLT COUNT & AUTO [id number] 04:03:00 Test Item Value Reference Range Interpretation Comments WHITE BLOOD CELL COUNT (BEAKER) 6.9 K/ L 3.5-10.5 (test code = 775) RED BLOOD CELL COUNT (BEAKER) 4.25 M/ L 3.93-5.22 (test code = 761) HEMOGLOBIN (BEAKER) (test code = 12.6 GM/DL 11.2-15.7 410) HEMATOCRIT (BEAKER) (test code = 38.9 % 34.1-44.9 411) MEAN CORPUSCULAR VOLUME (BEAKER) 91.5 fL 79.4-94.8 (test code = 753) MEAN CORPUSCULAR HEMOGLOBIN 29.6 pg 25.6-32.2 (BEAKER) (test code = 751) MEAN CORPUSCULAR HEMOGLOBIN CONC 32.4 GM/DL 32.2-35.5 (BEAKER) (test code = 752) RED CELL DISTRIBUTION WIDTH 13.1 % 11.7-14.4 (BEAKER) (test code = 412) PLATELET COUNT (BEAKER) (test 232 K/CU MM 150-450 code = 756) MEAN PLATELET VOLUME (BEAKER) 12.2 fL 9.4-12.3 (test code = 754) NUCLEATED RED BLOOD CELLS 0 /100 WBC 0-0 (BEAKER) (test code = 413) NEUTROPHILS RELATIVE PERCENT 70 % (BEAKER) (test code = 429) LYMPHOCYTES RELATIVE PERCENT 21 % (BEAKER) (test code = 430) MONOCYTES RELATIVE PERCENT 9 % (BEAKER) (test code = 431) EOSINOPHILS RELATIVE PERCENT 0 % (BEAKER) (test code = 432) BASOPHILS RELATIVE PERCENT 0 % (BEAKER) (test code = 437) NEUTROPHILS ABSOLUTE COUNT 4.81 K/ L 1.56-6.13 (BEAKER) (test code = 670) LYMPHOCYTES ABSOLUTE COUNT 1.43 K/ L 1.18-3.74 (BEAKER) (test code = 414) MONOCYTES ABSOLUTE COUNT (BEAKER) 0.59 K/ L 0.24-0.36 H (test code = 415) EOSINOPHILS ABSOLUTE COUNT 0.02 K/ L 0.04-0.36 L (BEAKER) (test code = 416) BASOPHILS ABSOLUTE COUNT (BEAKER) 0.02 K/ L 0.01-0.08 (test code = 417) IMMATURE GRANULOCYTES-RELATIVE 0 % 0-1 PERCENT (BEAKER) (test code = 2801) [id number] 00:06:00 Test Item Value Reference Range Interpretation Comments RPR SCREEN (BEAKER) (test code = Nonreactive Nonreactive 420) POCT-GLUCOSE [id number] 11:49:00 Test Item Value Reference Range Interpretation Comments POC-GLUCOSE METER 130 mg/dL 70-110 H TESTED AT [facility] 6720 (BEAKER) (test code = [place] 1538) [address] URINALYSIS W/ [id number] 10:39:00 Test Item Value Reference Range Interpretation Comments COLOR (BEAKER) (test code = Colorless 470) CLARITY (BEAKER) (test code = Clear 469) SPECIFIC GRAVITY UA (BEAKER) 1.006 1.001-1.035 (test code = 468) PH UA (BEAKER) (test code = 6.5 5.0-8.0 467) PROTEIN UA (BEAKER) (test code 10 mg/dL Negative A = 464) GLUCOSE UA (BEAKER) (test code Negative Negative = 365) KETONES UA (BEAKER) (test code Negative Negative = 371) BILIRUBIN UA (BEAKER) (test Negative Negative code = 462) BLOOD UA (BEAKER) (test code = Trace Negative A 461) NITRITE UA (BEAKER) (test code Negative Negative = 465) LEUKOCYTE ESTERASE UA (BEAKER) Negative Negative (test code = 466) UROBILINOGEN UA (BEAKER) (test 0.2 mg/dL 0.2-1.0 code = 463) RBC UA (BEAKER) (test code = 1 /HPF 519) WBC UA (BEAKER) (test code = 5 /HPF 520) SQUAMOUS EPITHELIAL (BEAKER) 1 /HPF (test code = 516) SOURCE(BEAKER) (test code = Urine, Voided 1877) HEMOGLOBIN [id number] 08:14:00 Test Item Value Reference Range Interpretation Comments HEMOGLOBIN A1C (BEAKER) (test code = 5.2 % 4.3-6.1 368) TSH/FREE T4 IF [id number] 06:38:00 Test Item Value Reference Range Interpretation Comments THYROID STIMULATING HORMONE 2.36 uIU/mL 0.35-4.94 (BEAKER) (test code = 772) VITAMIN B12 AND [id number] 06:38:00 Test Item Value Reference Range Interpretation Comments VITAMIN B12 (BEAKER) (test code = 692 pg/mL 213-816 774) FOLATE (BEAKER) (test code = 362) 13.7 ng/mL >=7.0 CREATINE KINASE (CK), TOTAL AND [id number] 05:01:00 Test Item Value Reference Range Interpretation Comments CREATINE KINASE TOTAL (BEAKER) 96 U/L 29-200 (test code = 380) CREATINE KINASE-MB (BEAKER) (test 1.8 ng/mL 0.0-6.6 code = 750) CREATINE KINASE-MB INDEX (BEAKER) 1.9 % (test code = 395) CK-MB Reference Range:<6.7 Normal6.7-10.0 Borderline>10.0 AbnormalFastingFastingTROPONIN [id number] 05:01:00 Test Item Value Reference Range Interpretation Comments TROPONIN I (BEAKER) (test code = 0.02 ng/mL 0.00-0.03 397) Troponin I (TnI) levels must be interpreted in the context of the presenting symptoms and the clinical findings. Elevated TnI levels indicate myocardial damage, but are not specific for ischemic heart disease. Elevated TnI levels are seen in patients with other cardiac conditions (including myocarditis and congestive heart failure), and slight TnI elevations occur in patients with other conditions, including sepsis, renal failure, acidosis, acute neurological disease, and persistent tachyarrhythmia.FastingBASIC METABOLIC [id number] 04:56:00 Test Item Value Reference Range Interpretation Comments SODIUM (BEAKER) 142 meq/L 136-145 (test code = 381) POTASSIUM (BEAKER) 4.2 meq/L 3.5-5.1 (test code = 379) CHLORIDE (BEAKER) 105 meq/L 98-107 (test code = 382) CO2 (BEAKER) (test 26 meq/L 22-29 code = 355) BLOOD UREA NITROGEN 19 mg/dL 7-21 (BEAKER) (test code = 354) CREATININE (BEAKER) 0.76 mg/dL 0.57-1.25 (test code = 358) GLUCOSE RANDOM 119 mg/dL 70-105 H (BEAKER) (test code = 652) CALCIUM (BEAKER) 9.9 mg/dL 8.4-10.2 (test code = 697) EGFR (BEAKER) (test mL/min/1.73 INSUFFIC IENT CLINICAL code = 1092) sq m DATA TO CALCULA TE ESTIMATED GFR. FastingLIPID [id number] 04:49:00 Test Item Value Reference Range Interpretation Comments TRIGLYCERIDES (BEAKER) (test code = 65 mg/dL 540) CHOLESTEROL (BEAKER) (test code = 239 mg/dL 631) HDL CHOLESTEROL (BEAKER) (test code 65 mg/dL = 976) LDL CHOLESTEROL CALCULATED (BEAKER) 161 mg/dL (test code = 633) Triglyceride Reference Range: Low Risk <150 Borderline 150-199 High Risk 200- 499 Very High Risk >=500Cholesterol Reference Range: Low Risk <200 Borderline 200-239 High Risk >240HDL Cholesterol Reference Range: Low Risk >=60 High Risk <40LDL Cholesterol Reference Range: Optimal <100 Near Optimal 100-129 Borderline 130-159 High 160-189 Very High >=190 Fasting HEPATIC FUNCTION [id number] 04:49:00 Test Item Value Reference Range Interpretation Comments TOTAL PROTEIN (BEAKER) (test code = 7.8 gm/dL 6.0-8.3 770) ALBUMIN (BEAKER) (test code = 1145) 4.1 g/dL 3.5-5.0 BILIRUBIN TOTAL (BEAKER) (test code 0.3 mg/dL 0.2-1.2 = 377) BILIRUBIN DIRECT (BEAKER) (test 0.1 mg/dL 0.1-0.5 code = 706) ALKALINE PHOSPHATASE (BEAKER) (test 77 U/L 40-150 code = 346) AST (SGOT) (BEAKER) (test code = 20 U/L 5-34 353) ALT (SGPT) (BEAKER) (test code = 17 U/L 6-55 347) FastingCBC W/PLT COUNT & AUTO [id number] 04:30:00 Test Item Value Reference Range Interpretation Comments WHITE BLOOD CELL COUNT (BEAKER) 11.4 K/ L 3.5-10.5 H (test code = 775) RED BLOOD CELL COUNT (BEAKER) 4.51 M/ L 3.93-5.22 (test code = 761) HEMOGLOBIN (BEAKER) (test code = 13.3 GM/DL 11.2-15.7 410) HEMATOCRIT (BEAKER) (test code = 41.1 % 34.1-44.9 411) MEAN CORPUSCULAR VOLUME (BEAKER) 91.1 fL 79.4-94.8 (test code = 753) MEAN CORPUSCULAR HEMOGLOBIN 29.5 pg 25.6-32.2 (BEAKER) (test code = 751) MEAN CORPUSCULAR HEMOGLOBIN CONC 32.4 GM/DL 32.2-35.5 (BEAKER) (test code = 752) RED CELL DISTRIBUTION WIDTH 12.8 % 11.7-14.4 (BEAKER) (test code = 412) PLATELET COUNT (BEAKER) (test 249 K/CU MM 150-450 code = 756) MEAN PLATELET VOLUME (BEAKER) 12.2 fL 9.4-12.3 (test code = 754) NUCLEATED RED BLOOD CELLS 0 /100 WBC 0-0 (BEAKER) (test code = 413) NEUTROPHILS RELATIVE PERCENT 83 % (BEAKER) (test code = 429) LYMPHOCYTES RELATIVE PERCENT 12 % (BEAKER) (test code = 430) MONOCYTES RELATIVE PERCENT 4 % (BEAKER) (test code = 431) EOSINOPHILS RELATIVE PERCENT 0 % (BEAKER) (test code = 432) BASOPHILS RELATIVE PERCENT 0 % (BEAKER) (test code = 437) NEUTROPHILS ABSOLUTE COUNT 9.47 K/ L 1.56-6.13 H (BEAKER) (test code = 670) LYMPHOCYTES ABSOLUTE COUNT 1.38 K/ L 1.18-3.74 (BEAKER) (test code = 414) MONOCYTES ABSOLUTE COUNT (BEAKER) 0.50 K/ L 0.24-0.36 H (test code = 415) EOSINOPHILS ABSOLUTE COUNT 0.00 K/ L 0.04-0.36 L (BEAKER) (test code = 416) BASOPHILS ABSOLUTE COUNT (BEAKER) 0.04 K/ L 0.01-0.08 (test code = 417) IMMATURE GRANULOCYTES-RELATIVE 0 % 0-1 PERCENT (BEAKER) (test code = 2801) [id number] 04:08:00 Test Item Value Reference Range Interpretation Comments PARTIAL THROMBOPLASTIN TIME 35.1 seconds 22.5-36.0 (BEAKER) (test code = 760) PROTHROMBIN [id number] 04:07:00 Test Item Value Reference Range Interpretation Comments PROTIME (BEAKER) (test code = 17.3 seconds 11.7-14.7 H 759) INR (BEAKER) (test code = 370) 1.4 <=5.9 RECOMMENDED COUMADIN/WARFARIN INR THERAPY RANGESSTANDARD DOSE: 2.0 - 3.0 Includes: PROPHYLAXIS for venous thrombosis, systemic embolization; TREATMENT for venous thrombosis and/or pulmonary embolus.HIGH RISK: Target INR is 2.5-3.5 for patients with mechanical heart valves.
[2022-01-06] MEDS ORDERED: NA CHLORIDE 0.9% 1,000 ML ONE (01:13)
[2022-01-06 01:34] LABS: Protime INR 1.53
[2022-01-06 01:36] LABS: Absolute Lymphocytes (CBC) 1.9 K/uL (0.7-4.9); Hematocrit 41.7 % (36.0-45.0); Lymphocytes % 34.7 % (15.3-44.8); MCV 90.5 fL (80-100); MPV 10.4 fL (7.6-11.3); RBC Red Blood Cell Count 4.61 M/uL (3.86-4.86)
[2022-01-06 01:52] LABS: SARS-CoV-2 Antigen Rapid Res Negative (Negative)
[2022-01-06 02:16] LABS: Bilirubin Direct 0.1 mg/dL (0-0.2); Bilirubin Total 0.4 mg/dL (0.2-1.0); Protein, Total 8.4 g/dL (6.4-8.2); Troponin High Sensitivity 8.7 pg/mL (<58.9)
[2022-01-06 02:17] LABS: Magnesium 2.3 mg/dL (1.8-2.4); Potassium 3.8 mmol/L (3.5-5.1); Thyroid Stimulating Hormone 4.47 uIU/mL (0.360-3.740)
--- NOTE | 2022-01-06 02:22 | ER ---
Nurse's Notes [facility] Name: Linda Gleason Age: 71 yrs Sex: Female : 1950 Arrival Date: 01/06/2022 Time: 00:47 Bed 17 Private MD: Diagnosis: Palpitations Presentation: 01/06 01:01 Chief complaint: Patient states: she is wearing a holter monitor for her heart and the bb light was on so she was told to come to the ED she denies chest pain, shortness of breath or dizziness. Coronavirus screen: At this time, the client does not indicate any symptoms associated with coronavirus-19. Ebola Screen: No symptoms or risks identified at this time. Initial Sepsis Screen: Does the patient meet any 2 criteria? No. Patient's initial sepsis screen is negative. Does the patient have a suspected source of infection? No. Patient's initial sepsis screen is negative. Risk Assessment: Do you want to hurt yourself or someone else? Patient reports no desire to harm self or others. Onset of symptoms was January 06, 2022. 01:01 Method Of Arrival: Ambulatory 01:01 Acuity: YOAN 3 bb Historical: - Allergies: 01:03 PENICILLINS; bb - Home Meds: 01:03 metoprolol tartrate 25 mg Oral tab 1 tab nightly [Active]; amiodarone 100 mg Oral tab 1 bb tab once daily [Active]; famotidine 20 mg Oral tab 1 tab once daily [Active]; hydralazine 25 mg Oral tab 1 tab three times a day [Active]; omeprazole 20 mg Oral cpDR 1 cap once daily [Active]; rivaroxaban 20 mg oral tab 1 tab once daily [Active]; rosuvastatin 10 mg oral cpSP 1 cap once daily [Active]; Xarelto 20 mg oral tab 1 tab once daily [Active]; - PMHx: 01:03 High Cholesterol; Hypertension; Rheumatoid Arthritis; Atrial fibrillation; bb - PSHx: 01:03 heart surgery; oophorectomy; breast cyst removal; bb - Immunization history:: Moderna x 3. - Social history:: Smoking status: unknown. - Family history:: not pertinent. Screenin:49 Abuse screen: Denies threats or abuse. ha1 00:49 Nutritional screening: No deficits noted. Tuberculosis screening: No symptoms or risk ha1 factors identified. Fall Risk Gait- Normal/Bed Rest/Wheelchair (0 pts) Mental Status- Oriented to own ability (0 pts). Assessment: 00:49 General: Appears in no apparent distress. comfortable, Behavior is calm, cooperative. ha1 00:49 Pain: Denies pain. Neuro: Level of Consciousness is awake, alert, obeys commands, ha1 Oriented to person, place, time, situation, Speech is normal, Pupils are PERRLA, Reports having a stroke 3 years ago. reports no deficits as result of the stroke.. Cardiovascular: Reports palpitations, Heart tones S1 S2 present Capillary refill < 3 seconds Clubbing of nail beds is absent Patient's skin is warm and dry. Pulses are all present. Rhythm is sinus rhythm. Respiratory: Airway is patent Respiratory effort is even, unlabored, Respiratory pattern is regular, symmetrical, Breath sounds are clear bilaterally. GI: No signs and/or symptoms were reported involving the gastrointestinal system. : No signs and/or symptoms were reported regarding the genitourinary system. EENT: No signs and/or symptoms were reported regarding the EENT system. Derm: Skin is intact, Skin is pink, warm \T\ dry. Musculoskeletal: Circulation, motion, and sensation intact. Range of motion: intact in all extremities. 01:33 Reassessment: Patient appears in no apparent distress at this time. No changes from ha1 previously documented assessment. Patient and/or family updated on plan of care and expected duration. Pain level reassessed. Patient is alert, oriented x 3, equal unlabored respirations, skin warm/dry/pink. 02:05 Reassessment: Patient appears in no apparent distress at this time. No changes from ha1 previously documented assessment. Patient and/or family updated on plan of care and expected duration. Pain level reassessed. Patient is alert, oriented x 3, equal unlabored respirations, skin warm/dry/pink. Vital Signs: 00:49 BP 165 / 85; Pulse 73; Resp 15 S; Temp 97.9(O); Pulse Ox 98% on R/A; Weight 71.67 kg; ha1 01:01 BP 162 / 84; Pulse 85; Resp 16 S; Temp 97.9(O); Pulse Ox 96% on R/A; Weight 71.67 kg bb (R); Height 5 ft. 2 in. (157.48 cm) (R); Pain 0/10; 01:40 BP 121 / 84; Pulse 69; Resp 18 S; Pulse Ox 99% on R/A; ha1 02:50 BP 125 / 78; Pulse 60; Resp 20; Pulse Ox 97% on R/A; ha1 01:01 Body Mass Index 28.90 (71.67 kg, 157.48 cm) bb ED Course: 00:47 Patient arrived in ED. bp1 00:49 Placed in gown. Bed in low position. Call light in reach. Side rails up X 1. ha1 00:51 Avni Michelle MD is Attending Physician. jose 01:03 Triage completed. bb 01:03 Arm band placed on Patient placed in an exam room, on a stretcher, on triage registered nurse, bb on pulse oximetry. EKG completed in triage. Results shown to MD. Family accompanied patient. 01:09 XRAY Chest (1 view) In Process Unspecified. EDMS 01:19 Inserted saline lock: 20 gauge in right antecubital area, using aseptic technique. oe Blood collected. 01:20 SARS RAPID Sent. oe 01:38 Vickie Quiroga, RADHA is Primary Nurse. ha1 02:21 Yeyo Brunner MD is Referral Physician. jose 02:50 No provider procedures requiring assistance completed. IV discontinued, intact, ha1 bleeding controlled, No redness/swelling at site. Pressure dressing applied. Administered Medications: 01:18 Drug: NS 0.9% 1000 ml Route: IV; Rate: 125 ml/hr; Site: right antecubital; lg3 02:57 Follow up: IV Status: Completed infusion kd3 Medication: 02:51 VIS not applicable for this client. ha1 Outcome: 02:22 Discharge ordered by . jose 02:50 Discharged to home ambulatory, with family. ha1 02:50 Condition: stable 02:50 Discharge instructions given to patient, family, Instructed on discharge instructions, follow up and referral plans. Demonstrated understanding of instructions, follow-up care. 02:57 Patient left the ED. kd3 Signatures: Dispatcher [employer] EDOR Avni Michelle MD MD cha Ballard, Brenda, RN RN bb Christopher Ghotra oe Marielle Machado RN RN lg3 Paniauga, SaigeFaby Jackson, RN RN kd3 Vickie Quiroga, RN RN ha1
--- NOTE | 2022-01-06 02:23 | EDPHYS ---
Physician Documentation [facility] Name: Linda Gleason Age: 71 yrs Sex: Female : 1950 Arrival Date: 01/06/2022 Time: 00:47 Bed 17 Private MD: ED Physician Avni Michelle HPI: 01/06 01:09 This 71 yrs old Female presents to ER via Ambulatory with complaints of AFIB. jose 01:09 The patient presents with a history of irregular heart beat, heart racing. Context: The jose symptoms occur at rest. Onset: The symptoms/episode began/occurred just prior to arrival. Duration: The patient or guardian reports multiple episodes, that wax and wane. Modifying factors: The symptoms are aggravated by nothing. The symptoms are alleviated by nothing. Associated signs and symptoms: The patient has no apparent associated signs or symptoms. Severity of symptoms: At their worst the symptoms were mild in the emergency department the symptoms are unchanged. The patient has experienced similar episodes in the past, several times. Historical: - Allergies: 01:03 PENICILLINS; bb - Home Meds: 01:03 metoprolol tartrate 25 mg Oral tab 1 tab nightly [Active]; amiodarone 100 mg Oral tab 1 bb tab once daily [Active]; famotidine 20 mg Oral tab 1 tab once daily [Active]; hydralazine 25 mg Oral tab 1 tab three times a day [Active]; omeprazole 20 mg Oral cpDR 1 cap once daily [Active]; rivaroxaban 20 mg oral tab 1 tab once daily [Active]; rosuvastatin 10 mg oral cpSP 1 cap once daily [Active]; Xarelto 20 mg oral tab 1 tab once daily [Active]; - PMHx: 01:03 High Cholesterol; Hypertension; Rheumatoid Arthritis; Atrial fibrillation; bb - PSHx: 01:03 heart surgery; oophorectomy; breast cyst removal; bb - Immunization history:: Moderna x 3. - Social history:: Smoking status: unknown. - Family history:: not pertinent. ROS: 01:09 Constitutional: Negative for fever, chills, and weight loss, Eyes: Negative for injury, jose pain, redness, and discharge, ENT: Negative for injury, pain, and discharge, Neck: Negative for injury, pain, and swelling, Respiratory: Negative for shortness of breath, cough, wheezing, and pleuritic chest pain, Abdomen/GI: Negative for abdominal pain, nausea, vomiting, diarrhea, and constipation, Back: Negative for injury and pain, : Negative for injury, bleeding, discharge, and swelling, MS/Extremity: Negative for injury and deformity, Skin: Negative for injury, rash, and discoloration, Neuro: Negative for headache, weakness, numbness, tingling, and seizure, Psych: Negative for depression, anxiety, suicide ideation, homicidal ideation, and hallucinations, Allergy/Immunology: Negative for hives, rash, and allergies, Endocrine: Negative for neck swelling, polydipsia, polyuria, polyphagia, and marked weight changes, Hematologic/Lymphatic: Negative for swollen nodes, abnormal bleeding, and unusual bruising. : Cardiovascular: Positive for palpitations. Exam: : Constitutional: This is a well developed, well nourished patient who is awake, alert, jose and in no acute distress. Head/Face: Normocephalic, atraumatic. Eyes: Pupils equal round and reactive to light, extra-ocular motions intact. Lids and lashes normal. Conjunctiva and sclera are non-icteric and not injected. Cornea within normal limits. Periorbital areas with no swelling, redness, or edema. ENT: Nares patent. No nasal discharge, no septal abnormalities noted. Tympanic membranes are normal and external auditory canals are clear. Oropharynx with no redness, swelling, or masses, exudates, or evidence of obstruction, uvula midline. Mucous membranes moist. Neck: Trachea midline, no thyromegaly or masses palpated, and no cervical lymphadenopathy. Supple, full range of motion without nuchal rigidity, or vertebral point tenderness. No Meningismus. Chest/axilla: Normal chest wall appearance and motion. Nontender with no deformity. No lesions are appreciated. Cardiovascular: Regular rate and rhythm with a normal S1 and S2. No gallops, murmurs, or rubs. Normal PMI, no JVD. No pulse deficits. Respiratory: Lungs have equal breath sounds bilaterally, clear to auscultation and percussion. No rales, rhonchi or wheezes noted. No increased work of breathing, no retractions or nasal flaring. Abdomen/GI: Soft, non-tender, with normal bowel sounds. No distension or tympany. No guarding or rebound. No evidence of tenderness throughout. Back: No spinal tenderness. No costovertebral tenderness. Full range of motion. Female : Normal external genitalia. Skin: Warm, dry with normal turgor. Normal color with no rashes, no lesions, and no evidence of cellulitis. MS/ Extremity: Pulses equal, no cyanosis. Neurovascular intact. Full, normal range of motion. Neuro: Awake and alert, GCS 15, oriented to person, place, time, and situation. Cranial nerves II-XII grossly intact. Motor strength 5/5 in all extremities. Sensory grossly intact. Cerebellar exam normal. Normal gait. Psych: Awake, alert, with orientation to person, place and time. Behavior, mood, and affect are within normal limits. 01:09 Musculoskeletal/extremity: DVT Exam: No signs of deep vein thrombosis. no pain, no swelling, no tenderness, negative Homans' sign noted on exam, no appreciated bluish discoloration, no erythema, no increased warmth. 01:18 ECG was reviewed by the Attending Physician. [facility] Vital Signs: 00:49 BP 165 / 85; Pulse 73; Resp 15 S; Temp 97.9(O); Pulse Ox 98% on R/A; Weight 71.67 kg; ha1 01:01 BP 162 / 84; Pulse 85; Resp 16 S; Temp 97.9(O); Pulse Ox 96% on R/A; Weight 71.67 kg bb (R); Height 5 ft. 2 in. (157.48 cm) (R); Pain 0/10; 01:40 BP 121 / 84; Pulse 69; Resp 18 S; Pulse Ox 99% on R/A; ha1 02:50 BP 125 / 78; Pulse 60; Resp 20; Pulse Ox 97% on R/A; ha1 01:01 Body Mass Index 28.90 (71.67 kg, 157.48 cm) MDM: 00:51 Patient medically screened. [facility] 01:11 Differential diagnosis: arrythmia, dehydration. Data reviewed: vital signs, nurses [facility] notes, lab test result(s), EKG, radiologic studies, plain films. Data interpreted: tubular riveter: rate is 85 beats/min, rhythm is regular, Pulse oximetry: on room air is 96 %. Test interpretation: by ED physician or midlevel provider: ECG, plain radiologic studies. Counseling: I had a detailed discussion with the patient and/or guardian regarding: the historical points, exam findings, and any diagnostic results supporting the discharge/admit diagnosis, lab results, radiology results. 01/06 00:55 Order name: Basic Metabolic Panel [facility] 01/06 00:55 Order name: CBC with Diff; Complete Time: 02:10 [facility] 01/06 00:55 Order name: LFT's [facility] 01/06 00:55 Order name: Magnesium [facility] 01/06 00:55 Order name: NT PRO-BNP [facility] 01/06 00:55 Order name: PT-INR; Complete Time: 02:10 [facility] 01/06 00:55 Order name: Troponin HS [facility] 01/06 00:55 Order name: XRAY Chest (1 view) [facility] 01/06 00:55 Order name: EKG; Complete Time: 00:56 [facility] 01/06 00:55 Order name: Lipase [facility] 01/06 00:55 Order name: TSH [facility] 01/06 00:55 Order name: SARS RAPID; Complete Time: 02:10 [facility] 01/06 02:20 Order name: T4 Free EDME 01/06 00:55 Order name: Cardiac monitoring; Complete Time: 01:18 [facility] 01/06 00:55 Order name: EKG - Nurse/Tech; Complete Time: 01:00 [facility] 01/06 00:55 Order name: IV Saline Lock; Complete Time: 01:18 [facility] 01/06 00:55 Order name: Labs collected and sent; Complete Time: 01:18 [facility] 01/06 00:55 Order name: O2 Per Protocol; Complete Time: 01:00 [facility] 01/06 00:55 Order name: O2 Sat Monitoring; Complete Time: 01:00 [facility] EC:18 Rate is 77 beats/min. Rhythm is regular. QRS [place] is Normal. [place] interval is normal. QRS jose interval is normal. QT interval is normal. No Q waves. T waves are Normal. No ST changes noted. Clinical impression: Normal ECG and No evidence of ischemia. Interpreted by me. Reviewed by me. Administered Medications: :18 Drug: NS 0.9% 1000 ml Route: IV; Rate: 125 ml/hr; Site: right antecubital; lg3 02:57 Follow up: IV Status: Completed infusion kd3 Disposition Summary: 01/06/22 02:22 Discharge Ordered Location: Home jose Problem: new jose Symptoms: have improved jose Condition: Stable jose Diagnosis - Palpitations jose Followup: jose - With: Private Physician - When: 2 - 3 days - Reason: Recheck today's complaints, Continuance of care, Re-evaluation by your physician Followup: jose - With: Yeyo Brunner MD - When: 2 - 3 days - Reason: Recheck today's complaints, Re-evaluation by your physician Discharge Instructions: - Discharge Summary Sheet jose - Atrial Fibrillation jose - Palpitations jose - Palpitations, Clpn-kf-Dnbr jose - Atrial Fibrillation, Upyo-ih-Meki jose Forms: - Medication Reconciliation Form jose - Thank You Letter jose - Antibiotic Education jose - Prescription Opioid Use jose Signatures: Dispatcher [employer] EDAvni Sheikh MD MD cha Ballard, Brenda RN RN bb Marielle Machado RN RN lg3 Faby Katz RN kd3
[2022-01-06 04:30] VITALS: TEMP 97.9
[2022-01-06 05:02] VITALS: BP 125/78; O2SAT 97
--- NOTE | 2022-01-06 06:24 | EKG ---
Test Date: 2022-01-06 Test Time: 01:01:51 Drop Forger: MEASUREMENT RESULTS: Intervals: Rate: 77 OK: 160 QRSD: 80 QT: 380 QTc: 430 Reading: P: 50 OK: 160 QRS: 13 T: 29 INTERPRETIVE STATEMENTS: Normal sinus rhythm Normal ECG Compared to ECG 07/15/2017 23:19:15 Left ventricular hypertrophy no longer present Electronically Signed On 01-06-22 06:23:41 CDT by Yeyo Brunner
--- NOTE | 2022-01-06 12:54 | RAD REPORT ---
EXAM DESCRIPTION: RAD - Chest Single View - 01/06/2022 1:07 am CLINICAL HISTORY: 71 years Female, COUGH COMPARISON: None. FINDINGS: No consolidation. No pneumothorax. No significant pleural effusion. Cardiac silhouette appears mildly enlarged. Loop recorder overlying the cardiac silhouette noted. Osseous structures are unremarkable. Nonspecific density overlying the right humeral head demonstrate d. IMPRESSION: No acute findings. Electronically signed by: Syed Mathews MD 01/06/2022 1:34 AM CDT Due to temporary technical issues with the PACS/Fluency reporting system, reports are being signed by the in house radiologists without review as a courtesy to insure prompt reporting. The interpreting radiologist is fully responsible for the content of the report.
== END 2022-01-06 02:57 | disposition home or self-care (01) ==
LOC: ER 00:45
DX: R00.2 Palpitations (principal); I10 Essential (primary) hypertension; I48.91 Unspecified atrial fibrillation; Z79.01 Long term (current) use of anticoagulants; E78.00 Pure hypercholesterolemia, unspecified; Z20.822 Contact with and (suspected) exposure to COVID-19; Z88.0 Allergy status to penicillin
CPT/HCPCS: 93005; 85025; 80048; 36415; 83735; 85610; 80076; 84443; 84484; 84439; 83690; 83880; 71045; 87811; J7030

== ENCOUNTER 2024-06-11 06:58 | Day surgery (SDC) | payer OTHER, BC ==
[2024-06-07 15:59] LABS: Absolute Lymphocytes (CBC) 1.2 K/uL (0.7-4.9); Absolute Monocytes 0.3 K/uL (0.1-1.3); Absolute Neutrophil 2.8 K/uL (1.8-8.0); Basophils % 0.3 % (0-1.3); Eosinophils % 0.3 % (0-4.4); Hematocrit 38.9 % (36.0-45.0); Hemoglobin 12.8 g/dL (12.0-15.0); Lymphocytes % 27.3 % (15.3-44.8); MCH 30.2 pg (27.0-35.0); MCV 91.6 fL (80-100); MPV 11.4 fL (7.6-11.3); Monocytes % 7.1 % (3.3-12.3); Nucleated Red Blood Cells % 0.2 % (0-0); Platelets 211 thou/uL (152-406); RBC Red Blood Cell Count 4.24 M/uL (3.86-4.86); Red Cell Distribution Width 13.4 % (12.1-15.2)
[2024-06-07 16:02] LABS: Anion Gap 4.9 mEq/L (5.0-15.0); Potassium 3.9 mEq/L (3.5-5.1)
[2024-06-07 16:04] LABS: PT Prothrombin Time 12.1 SECONDS (9.4-12.5); PTT, Activated Partial Thromb 34.9 SECONDS (24.3-36.9); Protime INR 1.15
--- NOTE | 2024-06-08 15:08 | EKG ---
Test Date: 2024-06-07 Test Time: 15:25:03 System Administration Advisor: JULIETA MEASUREMENT RESULTS: Intervals: Rate: 64 AR: 160 QRSD: 74 QT: 378 QTc: 389 Rombauer: P: 60 AR: 160 QRS: 41 T: 35 INTERPRETIVE STATEMENTS: Normal sinus rhythm ST abnormality, possible digitalis effect Abnormal ECG Compared to ECG 01/06/2022 01:01:51 ST (T wave) deviation now present Electronically Signed On 06-08-24 15:05:59 BATTERY STACKER by Jameson Villatoro
[2024-06-11] MEDS: Ringers Lactate 1,000 ML IV ONE (07:15)
[2024-06-11] MEDS ORDERED: propofoL 200 MG/20 ML VIAL IV ONE (08:05)
[2024-06-11] MEDS ORDERED: LIDOCAINE 1% MPF 5 ML VIAL ONE (08:05)
[2024-06-11] MEDS ORDERED: EPHEDRINE SULF 50 MG/ML VIAL ONE (09:03)
[2024-06-11] MEDS ORDERED: GLYCOPYRROLATE 0.2 MG/ML SYR ONE (09:25)
[2024-06-11 10:10] VITALS: BP 140/71; TEMP 97.9; O2SAT 100
== END 2024-06-11 10:03 | disposition home or self-care (01) ==
LOC: OR 06:58
PROVIDERS: ATTEND Surgery
PROC: 0DJD8ZZ Inspection of Lower Intestinal Tract, Via Natural or Artificial Opening Endoscopic (ICD-10-PCS; principal; 2024-06-11 08:30)
DX: Z12.11 Encounter for screening for malignant neoplasm of colon (principal); K64.4 Residual hemorrhoidal skin tags; K64.8 Other hemorrhoids; K57.30 Diverticulosis of large intestine without perforation or abscess without bleeding
CPT/HCPCS: 93005; 85025; 80048; 36415; 85610; 85730; J2704; J2003; J7120; G0121